=== PATIENT | female | born 1960 | race Caucasian/White ===

== ENCOUNTER 2018-02-08 05:05 | Emergency (ER) | payer MEDICARE, OTHER ==
[~2018-02-08] VITALS: Ht 175.3 cm; Wt 82.0 kg
[~2018-02-08 05:05] MED LIST: ALPR2TAB PO; GUAI120015 PO; NORCO10T PO; ONDA4TAB12 PO; PARO-44 PO; PRED50TA PO; TRAZ-91 PO
[2018-02-08] MEDS ORDERED: ALPRAZOLAM 1 MG TABLET (05:19)
[2018-02-08] MEDS ORDERED: HYDROCODONE/ACETAMINOPHEN 10-3 (05:19)
[2018-02-08] MEDS ORDERED: MELOXICAM 15 MG TABLET (05:19)
[2018-02-08] MEDS ORDERED: HYDROCODONE-ACETAMIN 10-325 MG (05:19)
[2018-02-08] MEDS ORDERED: TRAZODONE 150 MG TABLET (05:19)
[2018-02-08] MEDS ORDERED: LYRICA 200 MG CAPSULE (05:19)
[2018-02-08] MEDS ORDERED: DULOXETINE 60 MG (05:19)
[2018-02-08] MEDS ORDERED: ARIPIPRAZOLE 2 MG (05:19)
[2018-02-08] MEDS ORDERED: HYDROmorphone 1 mg/ml syringe IM ONE (05:40)
[2018-02-08] MEDS ORDERED: morphine 4 MG/ML inj SYRINge IV ONE (05:50)
[2018-02-08] MEDS ORDERED: predniSONE 20 mg tablet PO ONE (06:00)
[2018-02-08] MEDS ORDERED: ketorolac trometh inj. 60 MG/2 ML VIAL IM ONE (06:20)
[2018-02-08] MEDS ORDERED: PRED20TA PO (06:20)
[2018-02-08 06:39] VITALS: BP 118/75
== END 2018-02-08 06:42 | disposition home or self-care (01) ==
LOC: ER 05:06
DX: G89.29 Other chronic pain (principal); M54.41 Lumbago with sciatica, right side; J44.9 Chronic obstructive pulmonary disease, unspecified; Z79.899 Other long term (current) drug therapy
CPT/HCPCS: 96372; 96374; 99284; J1885; J2270; J7512

== ENCOUNTER 2019-01-17 19:35 | Emergency (ER) | payer MEDICARE, OTHER ==
[~2019-01-17] VITALS: Ht 172.7 cm; Wt 77.5 kg
[~2019-01-17 19:35] MED LIST changes: +ALPRAZOLAM 1 MG TABLET; +ARIPIPRAZOLE 2 MG; +DULOXETINE 60 MG; +HYDROCODONE-ACETAMIN 10-325 MG; +HYDROCODONE/ACETAMINOPHEN 10-3; +LYRICA 200 MG CAPSULE; +MELOXICAM 15 MG TABLET; +TRAZODONE 150 MG TABLET
[2019-01-17 19:44] VITALS: BP 125/64
--- NOTE | 2019-01-17 20:00 | NUR ---
PT AMB WITH STEADY GAIT TO ROOM WC2 FROM TRIAGE
--- NOTE | 2019-01-17 20:07 | NUR ---
PT IS 59 YO FEMALE C/O GRD LEVEL FALL AT APPROX 0900 TODAY LANDING IN RT LOWER LATERAL RIBS, TOOK TYLENOL AT 1600 AND NORCO 10MG, 2TABS AT 1900. PT IS RESTING QUIETLY IN ROOM ON CHAIR WAITING TO BE EVALUATED
[2019-01-17] MEDS ORDERED: ketorolac tromethamine 15mg/ml inj. IM ONE (20:30)
== END 2019-01-17 20:41 | disposition home or self-care (01) ==
LOC: ER 19:36
DX: S20.211A Contusion of right front wall of thorax, initial encounter (principal); M54.6 Pain in thoracic spine; J44.9 Chronic obstructive pulmonary disease, unspecified; G89.29 Other chronic pain; Z98.890 Other specified postprocedural states; Z88.8 Allergy status to other drugs, medicaments and biological substances; Z79.899 Other long term (current) drug therapy; W18.39XA Other fall on same level, initial encounter; Y93.89 Activity, other specified; Y92.89 Other specified places as the place of occurrence of the external cause; Y99.8 Other external cause status
CPT/HCPCS: 96372; 99284; J1885

== ENCOUNTER 2019-02-01 06:27 | Inpatient (IN) | payer MEDICARE, OTHER ==
[~2019-02-01] VITALS: Ht 172.7 cm; Wt 100.0 kg
[~2019-02-01 06:27] MED LIST changes: -DULOXETINE 60 MG; +DULOXETINE 60 MG PO; -MELOXICAM 15 MG TABLET; +MELOXICAM 15 MG TABLET PO; -TRAZODONE 150 MG TABLET; +TRAZODONE 150 MG TABLET PO
[2019-02-01] MEDS ORDERED: HYDROmorphone 1 mg/ml syringe IV ONE (07:05)
[2019-02-01] MEDS ORDERED: normal saline 1000ML IV soln IVB ONE (08:05)
[2019-02-01] MEDS ORDERED: HYDROmorphone inj. 0.5 MG/0.5 ML DISP.SYRIN IV ONE (08:15)
[2019-02-01 08:24] LABS: BASOPHILS # (AUTO) 0.1 X10'3 (0-0.2); BASOPHILS % (AUTO) 0.8 % (0-1); EOSINOPHILS # (AUTO) 0.1 X10'3 (0-0.9); EOSINOPHILS % (AUTO) 0.9 % (0-6); HEMATOCRIT 40.6 % (35.0-45.0); HEMOGLOBIN 13.6 g/dl (12.0-16.0); LYMPHOCYTES # (AUTO) 1.2 X10'3 (1.1-4.8); LYMPHOCYTES % (AUTO) 10.8 % (21-51); MEAN CORPUSCULAR HEMOGLOBIN 30.7 PG (27.0-31.0); MEAN CORPUSCULAR HGB CONC 33.4 g/dL (33.0-36.5); MEAN PLATELET VOLUME 7.1 FL (7.4-10.4); MONOCYTES # (AUTO) 0.7 X10'3 (0-0.9); MONOCYTES % (AUTO) 6.4 % (2-12); NEUTROPHILS # (AUTO) 8.8 X10'3 (1.8-7.7); NEUTROPHILS % (AUTO) 81.1 % (42-75); PLATELET COUNT 430 X10'3 (140-440); RED BLOOD COUNT 4.41 X10'6 (4.20-5.60); RED CELL DISTRIBUTION WIDTH 13.9 % (11.5-14.5); WHITE BLOOD COUNT 10.9 X10'3 (4.5-11.0)
[2019-02-01 08:47] LABS: ALANINE AMINOTRANSFERASE 17 U/L (12-78); ALBUMIN/GLOBULIN RATIO 0.9 (1.1-1.5); ALKALINE PHOSPHATASE 118 IU/L (46-116); ANION GAP 8 (8-16); ASPARTATE AMINO TRANSFERASE 14 U/L (10-37); BILIRUBIN,TOTAL 0.2 MG/DL (0.1-1.0); BLOOD UREA NITROGEN 27 MG/DL (7-18); BUN/CREATININE RATIO 31.8 (6.6-38.0); CALCIUM 8.7 MG/DL (8.5-10.1); CHLORIDE 108 MMOL/L (99-107); CREATININE 0.85 MG/DL (0.40-0.90); GLUCOSE 114 MG/DL (70-104); POTASSIUM 3.9 MMOL/L (3.5-5.1); SODIUM 143 MMOL/L (135-145); TOTAL CARBON DIOXIDE 26.9 MMOL/L (24-32); TOTAL PROTEIN 6.5 G/DL (6.4-8.2); eGFR 69 ML/MIN
[2019-02-01 08:51] LABS: PARTIAL THROMBOPLASTIN TIME 28 SECONDS (22-32)
--- NOTE | 2019-02-01 09:20 | NUR ---
Assumed care of pt. Resting in [facility]. Assisted pt onto bed ashley and repositioned for comfort. Cold packs placed to R ankle/heel for comfort; +swelling and bruising; pms intact distally. VSS. Awaiting receiving facility for transfer. Will continue to monitor.
[2019-02-01] MEDS ORDERED: HYDROmorphone inj. 0.5 MG/0.5 ML DISP.SYRIN IV PRN (09:35)
--- NOTE | 2019-02-01 10:55 | NUR ---
principal technical writer at bedside to apply splint as ordered.
[2019-02-01] MEDS ORDERED: potassium Cl 40MEQ/NS 500ml 500 ML IV PRN ×2 (11:05)
[2019-02-01] MEDS ORDERED: magnesium 4gm in 100ml NS 100 ML IV PRN (11:05)
[2019-02-01] MEDS ORDERED: morphine 2 MG/ML inj. syringe IV PRN (11:05)
[2019-02-01] MEDS ORDERED: HYDROcodone/acetaminophen 10/325mg tab PO PRN (11:05)
[2019-02-01] MEDS ORDERED: magnesium 2GM in 50ml NS 50 ML IV PRN (11:05)
[2019-02-01] MEDS ORDERED: HYDROcodone/acetaminophen 5mg/325mg tablet PO PRN (11:05)
[2019-02-01] MEDS ORDERED: magnesium Cl slow-release 64mg tablet PO PRN (11:05)
[2019-02-01] MEDS ORDERED: magnesium hydroxide 30ml (MOM) UD suspension PO PRN (11:05)
[2019-02-01] MEDS ORDERED: acetaminophen 325mg tablet PO PRN ×2 (11:05)
[2019-02-01] MEDS ORDERED: LORazepam 2 mg/ml vial IV PRN (11:05)
[2019-02-01] MEDS ORDERED: mag hydrox/Alum hydrox/simeth 30ml oral suspension PO PRN (11:05)
[2019-02-01] MEDS ORDERED: potassium Cl 20 mEq SR tablet PO PRN ×2 (11:05)
[2019-02-01] MEDS ORDERED: ondansetron/PF 4mg/2ml inj IV PRN (11:05)
[2019-02-01] MEDS: normal saline 1000ml 1,000 ML IV SCH (11:26)
--- NOTE | 2019-02-01 12:00 | NUR ---
Patient in room ORTHO 4010. I have received report from lOy, ED RN, and had the opportunity to ask questions and assume patient care.
[2019-02-01 12:15] VITALS: BP 130/79
[2019-02-01] MEDS: morphine 2 MG/ML inj. syringe IV PRN ×2 (13:26→19:37)
[2019-02-01] MEDS ORDERED: DULO60CA64 PO (13:31)
[2019-02-01] MEDS ORDERED: MELO-102 PO (13:31)
[2019-02-01] MEDS ORDERED: HYDR-3972 PO (13:31)
[2019-02-01] MEDS ORDERED: TRAZ300T2 PO (13:31)
[2019-02-01 13:56] LABS: URINE AMPHETAMINE SCREEN NEGATIVE (Neg); URINE BARBITUATE SCREEN NEGATIVE (Neg); URINE BENZODIAZEPINES SCREEN POSITIVE (Neg); URINE CANNABINOID SCREEN POSITIVE (Neg); URINE COCAINE SCREEN NEGATIVE (Neg); URINE METHADONE SCREEN NEGATIVE (Neg); URINE OPIATE SCREEN POSITIVE (Neg); URINE PHENCYCLIDINE SCREEN NEGATIVE (Neg)
[2019-02-01] MEDS: HYDROcodone/acetaminophen 10/325mg tab PO PRN ×2 (15:18→20:47)
[2019-02-01 18:00] VITALS: BP 141/72
--- NOTE | 2019-02-01 18:15 | NUR ---
Problems reprioritized. Patient report given, questions answered & plan of care reviewed with CHARLES Montoya.
[2019-02-01] MEDS: heparin, porcine 5000 units/ml vial SQ SCH (19:36)
[2019-02-01] MEDS: LORazepam 1 MG tablet PO PRN (19:37)
[2019-02-01] MEDS: traZODone 150mg tablet PO SCH (20:59)
[2019-02-01] MEDS ORDERED: temazepam 15mg capsule PO PRN (21:00)
--- NOTE | 2019-02-01 21:12 | NUR ---
I called admitting and asked them to come and take her wallet with tellez/checks and credit cards to the vault to be locked up. I took her home medications to the pharmacy to lock them up.
[2019-02-01 22:00] VITALS: BP 133/88
[2019-02-02] VITALS (21 sets, daily range): BP systolic 86–146; BP diastolic 49–87
[2019-02-02] MEDS: morphine 2 MG/ML inj. syringe IV PRN (03:16)
[2019-02-02] MEDS: HYDROcodone/acetaminophen 10/325mg tab PO PRN ×4 (06:27→22:13)
[2019-02-02] MEDS: LORazepam 1 MG tablet PO PRN ×2 (06:30→22:13)
--- NOTE | 2019-02-02 06:37 | NUR ---
Problems reprioritized. Patient report given, questions answered & plan of care reviewed with CHARLES Barone.
[2019-02-02] MEDS: heparin, porcine 5000 units/ml vial SQ SCH ×2 (06:51→20:18)
[2019-02-02 06:55] LABS: BASOPHILS # (AUTO) 0.1 X10'3 (0-0.2); BASOPHILS % (AUTO) 0.6 % (0-1); EOSINOPHILS # (AUTO) 0.2 X10'3 (0-0.9); EOSINOPHILS % (AUTO) 1.6 % (0-6); HEMATOCRIT 40.1 % (35.0-45.0); HEMOGLOBIN 13.5 g/dl (12.0-16.0); LYMPHOCYTES # (AUTO) 1.5 X10'3 (1.1-4.8); LYMPHOCYTES % (AUTO) 15.2 % (21-51); MEAN CORPUSCULAR HEMOGLOBIN 30.8 PG (27.0-31.0); MEAN CORPUSCULAR HGB CONC 33.6 g/dL (33.0-36.5); MEAN CORPUSCULAR VOLUME 91.6 FL (78-98); MEAN PLATELET VOLUME 7.2 FL (7.4-10.4); MONOCYTES # (AUTO) 0.8 X10'3 (0-0.9); MONOCYTES % (AUTO) 8.4 % (2-12); NEUTROPHILS # (AUTO) 7.3 X10'3 (1.8-7.7); NEUTROPHILS % (AUTO) 74.2 % (42-75); PLATELET COUNT 465 X10'3 (140-440); RED BLOOD COUNT 4.38 X10'6 (4.20-5.60); RED CELL DISTRIBUTION WIDTH 13.5 % (11.5-14.5); WHITE BLOOD COUNT 9.9 X10'3 (4.5-11.0)
[2019-02-02 07:15] LABS: ALANINE AMINOTRANSFERASE 16 U/L (12-78); ALBUMIN 2.9 G/DL (3.4-5.0); ALBUMIN/GLOBULIN RATIO 0.8 (1.1-1.5); ALKALINE PHOSPHATASE 114 IU/L (46-116); ANION GAP 8 (8-16); ASPARTATE AMINO TRANSFERASE 15 U/L (10-37); BILIRUBIN,TOTAL 0.4 MG/DL (0.1-1.0); BLOOD UREA NITROGEN 14 MG/DL (7-18); BUN/CREATININE RATIO 22.2 (6.6-38.0); CALCIUM 8.8 MG/DL (8.5-10.1); CHLORIDE 106 MMOL/L (99-107); CREATININE 0.63 MG/DL (0.40-0.90); GLUCOSE 115 MG/DL (70-104); MAGNESIUM 1.9 MG/DL (1.5-2.4); POTASSIUM 3.8 MMOL/L (3.5-5.1); SODIUM 140 MMOL/L (135-145); TOTAL CARBON DIOXIDE 26.5 MMOL/L (24-32); TOTAL PROTEIN 6.4 G/DL (6.4-8.2); eGFR > 90 ML/MIN
[2019-02-02] MEDS: duloxetine 20mg capsule.DR PO SCH (07:17)
[2019-02-02] MEDS: K and/or MAG REPLACEMENT MC SCH (08:00)
[2019-02-02] MEDS ORDERED: sevoflurane 250ml liquid IH ONE (12:24)
[2019-02-02] MEDS ORDERED: MIDAZolam 5mg/5ml vial ONE (12:28)
[2019-02-02] MEDS ORDERED: fentaNYL/PF 50MCG/1 ML 2ML syringe ONE ×2 (12:28→13:29)
[2019-02-02] MEDS ORDERED: propofol inj 20 ML IV ONE (13:02)
[2019-02-02] MEDS ORDERED: glycopyrrolate 0.2mg/ml inj ONE (13:02)
[2019-02-02] MEDS ORDERED: ondansetron/PF 4mg/2ml inj ONE (13:02)
[2019-02-02] MEDS ORDERED: ROPIVAcaine 0.5% (5mg/ml) 30ml vial ONE (13:02)
[2019-02-02] MEDS ORDERED: neostigmine methylsulfate 1 MG/ML 10ml vial ONE (13:02)
[2019-02-02] MEDS ORDERED: rocuronium 10mg/ml inj IV ONE (13:02)
[2019-02-02] MEDS ORDERED: dexamethasone sod phosphate 4mg/ml inj. ONE (13:02)
[2019-02-02] MEDS ORDERED: LIDOcaine 1%/PF 5ML 10 MG/ML VIAL ONE (13:02)
[2019-02-02] MEDS ORDERED: LIDOcaine 2% (20mg/ml) 5ml vial ONE (13:10)
--- NOTE | 2019-02-02 13:45 | NUR ---
Received from OR via BED, accompanied by Anesthesiologist THERESA and report given by Anesthesiolgist. PT DROWSY, OXYGENATING WELL ON 10 LPM O2 VIA MASK, NO RESP DISTRESS NOTED. ANETHESIA REQUESTED FOR PT TO HAVE A DUONEB TX, RESP WAS PAGED. PT DENIES NAUSEA OR PAIN AT THIS TIME, HAS RISB. NUMBNESS TO R ARM/HAND. R FINGERS ARE PWD. RUE PADDED ON A PILLOW. NO INGRAM, SCD IN ON LLE. VSS.
[2019-02-02] MEDS ORDERED: ringers solution, lacted 1,000 ML IV SCH (13:58)
[2019-02-02] MEDS ORDERED: meperidine/PF 25mg/ml syringe IV PRN ×3 (14:00)
[2019-02-02] MEDS ORDERED: morphine 4 MG/ML inj SYRINge IV PRN ×2 (14:00)
[2019-02-02] MEDS ORDERED: proCHLORperazine 10 MG/2 ml inj IV PRN (14:00)
[2019-02-02] MEDS ORDERED: ondansetron/PF 4mg/2ml inj IV PRN (14:00)
--- NOTE | 2019-02-02 15:20 | NUR ---
PT HAD URINE INCONTINENCE X 2 DURING PACU STAY. PROVIDED MOISES CARE AND CLEAN LINENS. NO C/O PAIN, TOLERATING PO FLUIDS WELL. VSS. BELONGINGS ARE IN PT ROOM. TRANSFERRED BACK TO ORTHO FLOOR IN STABLE CONDITION. REPORT GIVEN TO RECEIVING RN.
[2019-02-02] MEDS ORDERED: acetaminophen 1,000mg/100ml IV 100 ML IV ONE (15:25)
[2019-02-02] MEDS ORDERED: LORazepam 2 mg/ml vial IV ONE (15:25)
[2019-02-02] MEDS: ipratropium/albuterol 3ml nebule NEB SCH ×3 (16:30→23:00)
[2019-02-02] MEDS ORDERED: nicotine 21mg patch - 24 hr TD SCH (16:32)
[2019-02-02] MEDS: nicotine 21mg patch - 24 hr TD SCH (16:42)
[2019-02-02] MEDS: normal saline 1000ml 1,000 ML IV SCH (16:43)
--- NOTE | 2019-02-02 18:19 | NUR ---
Problems reprioritized. Patient report given, questions answered & plan of care reviewed with Kaylin SOTO.
--- NOTE | 2019-02-02 19:04 | NUR ---
REPORT REC'D FROM CHARLES FIORE.
[2019-02-02] MEDS: traZODone 150mg tablet PO SCH (20:15)
[2019-02-02] MEDS: cefazolin/dext.iso 2gm/100ml 100 ML IV SCH (20:16)
--- NOTE | 2019-02-02 23:26 | NUR ---
PT BP IS LOW, PT IS NONSYMPTOMATIC, AWAKE ALERT ORIENTED, JUST GIVEN NORCO, "ARM IS WAKING UP AND THROBBING". WILL CONTINUE TO MONITOR. Addendum: 02/02/19 at 3328 by Kaylin Orellana RN Amended: Links added.
[2019-02-03] MEDS: cefazolin/dext.iso 2gm/100ml 100 ML IV SCH ×3 (00:08→15:38)
[2019-02-03] MEDS: ipratropium/albuterol 3ml nebule NEB SCH ×5 (03:00→23:00)
[2019-02-03] MEDS: HYDROcodone/acetaminophen 10/325mg tab PO PRN ×5 (04:56→22:15)
[2019-02-03 06:00] VITALS: BP 119/71
--- NOTE | 2019-02-03 06:25 | NUR ---
PHYS. THER. IS IN THE ROOM TO AMBULATE, FOUND MULTIPLE UNKNOWN MEDICATIONS LOOSE IN THE BED. NSG WILL FOLLOW UP WITH IDENTIFICATION.
--- NOTE | 2019-02-03 06:25 | NUR ---
Patient in room ORTHO 4010. I have received report from Hira SOTO and had the opportunity to ask questions and assume patient care.
--- NOTE | 2019-02-03 06:31 | NUR ---
REPORT GIVEN TO CHARLES FIORE.
--- NOTE | 2019-02-03 06:40 | NUR ---
Medication found in bed from PT while getting patient up. Looked up and they were Serequel 50mg, Cymbalta 60mg, Gabapentin 300mg. Turner Kirk aware.
[2019-02-03] MEDS: duloxetine 20mg capsule.DR PO SCH (07:27)
[2019-02-03] MEDS: heparin, porcine 5000 units/ml vial SQ SCH ×2 (07:28→20:58)
[2019-02-03] MEDS: normal saline 1000ml 1,000 ML IV SCH ×2 (07:32→22:42)
[2019-02-03 07:40] LABS: BASOPHILS # (AUTO) 0.1 X10'3 (0-0.2); BASOPHILS % (AUTO) 0.5 % (0-1); EOSINOPHILS % (AUTO) 0.2 % (0-6); HEMATOCRIT 38.3 % (35.0-45.0); HEMOGLOBIN 12.7 g/dl (12.0-16.0); LYMPHOCYTES # (AUTO) 1.5 X10'3 (1.1-4.8); LYMPHOCYTES % (AUTO) 14.6 % (21-51); MEAN CORPUSCULAR HEMOGLOBIN 30.1 PG (27.0-31.0); MEAN CORPUSCULAR VOLUME 91.2 FL (78-98); MEAN PLATELET VOLUME 7.6 FL (7.4-10.4); MONOCYTES # (AUTO) 0.9 X10'3 (0-0.9); MONOCYTES % (AUTO) 8.4 % (2-12); NEUTROPHILS # (AUTO) 7.9 X10'3 (1.8-7.7); NEUTROPHILS % (AUTO) 76.3 % (42-75); PLATELET COUNT 443 X10'3 (140-440); RED CELL DISTRIBUTION WIDTH 13.8 % (11.5-14.5); WHITE BLOOD COUNT 10.4 X10'3 (4.5-11.0)
[2019-02-03 07:55] LABS: ALANINE AMINOTRANSFERASE 15 U/L (12-78); ALBUMIN 2.7 G/DL (3.4-5.0); ALBUMIN/GLOBULIN RATIO 0.8 (1.1-1.5); ALKALINE PHOSPHATASE 102 IU/L (46-116); ANION GAP 9 (8-16); ASPARTATE AMINO TRANSFERASE 15 U/L (10-37); BILIRUBIN,TOTAL 0.3 MG/DL (0.1-1.0); BLOOD UREA NITROGEN 13 MG/DL (7-18); CHLORIDE 105 MMOL/L (99-107); CREATININE 0.62 MG/DL (0.40-0.90); GLUCOSE 117 MG/DL (70-104); POTASSIUM 3.6 MMOL/L (3.5-5.1); SODIUM 140 MMOL/L (135-145); TOTAL CARBON DIOXIDE 25.6 MMOL/L (24-32); TOTAL PROTEIN 6.3 G/DL (6.4-8.2); eGFR > 90 ML/MIN
[2019-02-03] MEDS: K and/or MAG REPLACEMENT MC SCH (08:00)
[2019-02-03 10:00] VITALS: BP 114/62
[2019-02-03 14:00] VITALS: BP 111/78
[2019-02-03] MEDS ORDERED: LORazepam 0.5 MG tablet PO PRN (15:30)
[2019-02-03] MEDS: nicotine 21mg patch - 24 hr TD SCH (17:26)
[2019-02-03 18:00] VITALS: BP 127/70
[2019-02-03] MEDS: naproxen 500mg tablet PO SCH (18:04)
--- NOTE | 2019-02-03 18:10 | NUR ---
Problems reprioritized. Patient report given, questions answered & plan of care reviewed with Kaylin davila.
--- NOTE | 2019-02-03 18:18 | NUR ---
REPORT REC'D FROM CHARLES FIORE.
[2019-02-03] MEDS: traZODone 150mg tablet PO SCH (20:59)
[2019-02-03 22:00] VITALS: BP 162/75
[2019-02-04] MEDS: cefazolin/dext.iso 2gm/100ml 100 ML IV SCH ×2 (01:02→08:07)
[2019-02-04] MEDS: ipratropium/albuterol 3ml nebule NEB SCH ×3 (03:00→11:00)
[2019-02-04] MEDS: HYDROcodone/acetaminophen 10/325mg tab PO PRN ×3 (05:32→14:41)
[2019-02-04 06:00] VITALS: BP 137/77
--- NOTE | 2019-02-04 06:20 | NUR ---
report given to giovanni Barone.
[2019-02-04 07:20] LABS: BASOPHILS # (AUTO) 0.1 X10'3 (0-0.2); BASOPHILS % (AUTO) 0.9 % (0-1); EOSINOPHILS # (AUTO) 0.1 X10'3 (0-0.9); EOSINOPHILS % (AUTO) 1.6 % (0-6); HEMATOCRIT 35.9 % (35.0-45.0); HEMOGLOBIN 12.1 g/dl (12.0-16.0); LYMPHOCYTES # (AUTO) 1.5 X10'3 (1.1-4.8); LYMPHOCYTES % (AUTO) 20.2 % (21-51); MEAN CORPUSCULAR HEMOGLOBIN 30.4 PG (27.0-31.0); MEAN CORPUSCULAR HGB CONC 33.8 g/dL (33.0-36.5); MEAN CORPUSCULAR VOLUME 90.2 FL (78-98); MEAN PLATELET VOLUME 7.6 FL (7.4-10.4); MONOCYTES # (AUTO) 0.7 X10'3 (0-0.9); MONOCYTES % (AUTO) 9.4 % (2-12); NEUTROPHILS % (AUTO) 67.9 % (42-75); PLATELET COUNT 419 X10'3 (140-440); RED BLOOD COUNT 3.98 X10'6 (4.20-5.60); RED CELL DISTRIBUTION WIDTH 13.5 % (11.5-14.5); WHITE BLOOD COUNT 7.3 X10'3 (4.5-11.0)
[2019-02-04 07:49] LABS: ALANINE AMINOTRANSFERASE 12 U/L (12-78); ALBUMIN 2.6 G/DL (3.4-5.0); ALBUMIN/GLOBULIN RATIO 0.8 (1.1-1.5); ALKALINE PHOSPHATASE 94 IU/L (46-116); ANION GAP 9 (8-16); ASPARTATE AMINO TRANSFERASE 18 U/L (10-37); BILIRUBIN,TOTAL 0.4 MG/DL (0.1-1.0); BLOOD UREA NITROGEN 12 MG/DL (7-18); BUN/CREATININE RATIO 19.4 (6.6-38.0); CALCIUM 8.7 MG/DL (8.5-10.1); CHLORIDE 108 MMOL/L (99-107); CREATININE 0.62 MG/DL (0.40-0.90); GLUCOSE 111 MG/DL (70-104); MAGNESIUM 1.8 MG/DL (1.5-2.4); POTASSIUM 3.4 MMOL/L (3.5-5.1); SODIUM 144 MMOL/L (135-145); TOTAL CARBON DIOXIDE 27.4 MMOL/L (24-32); eGFR > 90 ML/MIN
[2019-02-04] MEDS ORDERED: non-formulary drug (Alprazolam 1 MG) PO SCH (08:00)
[2019-02-04] MEDS ORDERED: ALPRAZolam 0.5mg tablet PO SCH (08:00)
[2019-02-04] MEDS ORDERED: MELOXICAM PO SCH (08:00)
[2019-02-04] MEDS: K and/or MAG REPLACEMENT MC SCH (08:00)
[2019-02-04] MEDS: naproxen 500mg tablet PO SCH (08:08)
[2019-02-04] MEDS: duloxetine 20mg capsule.DR PO SCH (08:08)
[2019-02-04] MEDS: heparin, porcine 5000 units/ml vial SQ SCH (08:12)
[2019-02-04 10:00] VITALS: BP 133/84
--- NOTE | 2019-02-04 11:48 | NUR ---
Student Medication Administration:For this medication-pass time frame [id number], all medication were reviewed, administered and documented per hospital policy by Duke Garcia. Student documentation:I have reviewed and agree with all interventions, assessments performed and documented by Duke Garcia.
--- NOTE | 2019-02-04 12:24 | NUR ---
PATIENT REFUSING BREATHING TREATMENTS, PLEASE DISCONTINUE ORDER OR CHANGE TO PRN
[2019-02-04] MEDS: normal saline 1000ml 1,000 ML IV SCH (13:00)
--- NOTE | 2019-02-04 13:21 | NUR ---
Report called to Vika bonilla Coila.
--- NOTE | 2019-02-04 13:38 | NUR ---
IV removed, no tele box on patient.
== END 2019-02-04 14:50 | DRG 511 ==
LOC: ER 06:27 → ED HOLD 12:24 → ORTHO 4S 12:37
PROVIDERS: ADMIT Internal Medicine; ATTEND Family Medicine
PROC: 2W3QX1Z Immobilization of Right Lower Leg using Splint (ICD-10-PCS; 2019-02-01)
PROC: 2W3CX1Z Immobilization of Right Lower Arm using Splint (ICD-10-PCS; 2019-02-01)
PROC: 3E0T3BZ Introduction of Anesthetic Agent into Peripheral Nerves and Plexi, Percutaneous Approach (ICD-10-PCS; 2019-02-02)
PROC: 0PSH04Z Reposition Right Radius with Internal Fixation Device, Open Approach (ICD-10-PCS; principal; 2019-02-02 12:24)
DX: S92.014A Nondisplaced fracture of body of right calcaneus, initial encounter for closed fracture (principal); S52.551A Other extraarticular fracture of lower end of right radius, initial encounter for closed fracture; S52.601A Unspecified fracture of lower end of right ulna, initial encounter for closed fracture; F17.210 Nicotine dependence, cigarettes, uncomplicated; G89.4 Chronic pain syndrome; J44.9 Chronic obstructive pulmonary disease, unspecified; M81.0 Age-related osteoporosis without current pathological fracture; M54.9 Dorsalgia, unspecified; F41.9 Anxiety disorder, unspecified; W13.4XXA Fall from, out of or through window, initial encounter; Z88.8 Allergy status to other drugs, medicaments and biological substances; Z79.82 Long term (current) use of aspirin; Y92.89 Other specified places as the place of occurrence of the external cause; Y93.39 Activity, other involving climbing, rappelling and jumping off; Y99.8 Other external cause status
CPT/HCPCS: 29515; 36415; 71045; 73110; 73610; 73700; 80053; 80305; 83735; 85025; 85610; 85730; 87070; 93005; 94640; 94760; 96374; 96376; 97116; 97162; 97530; 99285; A6222; A6446; A6449; A7000; C1713; G0378; J0690; J1100; J1170; J1644; J2001; J2250; J2270; J2405; J2704; J2710; J2795; J3010; J3490; J7030; J7120

== ENCOUNTER 2019-02-19 10:20 | Emergency (ER) | payer MEDICARE, OTHER ==
[~2019-02-19] VITALS: Ht 172.7 cm; Wt 97.7 kg
[~2019-02-19 10:20] MED LIST changes: -ALPRAZOLAM 1 MG TABLET; -ARIPIPRAZOLE 2 MG; +DULO60CA64 PO; -DULOXETINE 60 MG PO; -GUAI120015 PO; +HYDR-3972 PO; -HYDROCODONE-ACETAMIN 10-325 MG; -HYDROCODONE/ACETAMINOPHEN 10-3; -LYRICA 200 MG CAPSULE; +MELO-102 PO; -MELOXICAM 15 MG TABLET PO; -NORCO10T PO; -ONDA4TAB12 PO; -PARO-44 PO; -PRED50TA PO; -TRAZ-91 PO; +TRAZ300T2 PO; -TRAZODONE 150 MG TABLET PO
[2019-02-19] MEDS ORDERED: ketorolac tromethamine 15mg/ml inj. IM ONE (11:10)
--- NOTE | 2019-02-19 12:50 | NUR ---
PT AT XRAY
--- NOTE | 2019-02-19 12:56 | NUR ---
PT BACK FROM XRAY
[2019-02-19] MEDS ORDERED: ONDA4TAB6 PO (13:34)
[2019-02-19] MEDS ORDERED: HYDR-3965 PO (13:34)
[2019-02-19] MEDS ORDERED: METH500T PO (13:34)
[2019-02-19 13:41] VITALS: BP 122/59
--- NOTE | 2019-02-19 13:45 | NUR ---
PATIENT UNABLE TO AMBULATE DUE TO CASTING ON THE LEG, PATIENT HAS BEEN WHEELCHAIR BOUND. DR MACK AWARE OF GAIT TESTING OMITTED FROM PLAN OF CARE .
== END 2019-02-19 14:09 | disposition home or self-care (01) ==
LOC: ER 10:21
DX: S29.012A Strain of muscle and tendon of back wall of thorax, initial encounter (principal); S39.012A Strain of muscle, fascia and tendon of lower back, initial encounter; J44.9 Chronic obstructive pulmonary disease, unspecified; G89.29 Other chronic pain; Z98.890 Other specified postprocedural states; Z88.8 Allergy status to other drugs, medicaments and biological substances; Z79.899 Other long term (current) drug therapy; W18.49XA Other slipping, tripping and stumbling without falling, initial encounter; Y93.89 Activity, other specified; Y92.099 Unspecified place in other non-institutional residence as the place of occurrence of the external cause; Y99.9 Unspecified external cause status
CPT/HCPCS: 72074; 72100; 96372; 99284; J1885

== ENCOUNTER 2019-05-24 11:02 | Inpatient (IN) | payer MEDICARE, OTHER ==
[~2019-05-24] VITALS: Ht 172.7 cm; Wt 81.9 kg
--- NOTE | 2019-05-24 10:40 | NUR ---
ADMISSION NOTE: Patient was transferred from [facility] to [facility]. Patient ambulates without difficulty. States she started getting depressed approximately two months ago. In March she cut her wrists and has bilateral scars on thighs were there were large cuts made in tissue. Patient 3 [place]. Patient admits to being depressed, but presently is not suicidal. States that she has seen Dr. Christie at [facility], but has been off her medications for at least a month. She was an inpatient recently and never refilled her medications when she got back. Patient has chronic back pain and usually takes [place] for this. Pain is 7/10, Tylenol was administered. Patient has a sister that lives out of town, and an ex-boyfriend who is taking care of her cats while she is here. She states that she has lost some weight lately, and does not have the drive to cook or prepare herself food. States that she gets some tremors in her hands in the a.m., and wrings them much of the time.
[~2019-05-24 11:02] MED LIST changes: -DULO60CA64 PO; +DULO60CA65 PO; +METH500T PO; +ONDA4TAB6 PO
[2019-05-24] MEDS ORDERED: loperamide 2mg capsule PO PRN (11:30)
[2019-05-24] MEDS ORDERED: mag hydrox/Alum hydrox/simeth 30ml oral suspension PO PRN (11:30)
--- NOTE | 2019-05-24 12:08 | NUR ---
Malnutrition consult: Pt just admitted pending documentation of ht, wt, H&P, physical assessment, and PO intake on regular diet. Insufficient information to assess for malnutrition at this time. Will f/u tomorrow. Addendum: 05/24/19 at [address] Amended: Links added.
[2019-05-24 12:19] VITALS: BP 124/86
[2019-05-24] MEDS ORDERED: pneumococcal 23-VAL P-sac vacc 25 mcg/0.5ml vial IMVAC ONE (12:25)
[2019-05-24] MEDS: acetaminophen 325mg tablet PO PRN ×2 (13:44→20:54)
[2019-05-24] MEDS ORDERED: QUET25TA PO (15:02)
[2019-05-24] MEDS ORDERED: HYDR-3965 PO (15:09)
[2019-05-24] MEDS ORDERED: OMEP20TA23 PO (15:09)
[2019-05-24] MEDS ORDERED: GABA-532 PO (15:09)
[2019-05-24] MEDS ORDERED: METH-360 PO (15:09)
[2019-05-24] MEDS ORDERED: DULO-31 PO (15:09)
[2019-05-24 20:00] VITALS: BP 104/64
[2019-05-24] MEDS: hydrOXYzine 25 MG tablet PO PRN (20:53)
[2019-05-24] MEDS ORDERED: traMADol 50MG tablet PO PRN (21:00)
[2019-05-24] MEDS: gabapentin 400mg capsule PO SCH (21:54)
[2019-05-24] MEDS: QUEtiapine 25mg tablet PO SCH (21:55)
[2019-05-24] MEDS: nortriptyline 25mg capsule PO SCH (21:56)
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
[2019-05-25 07:00] VITALS: BP 101/72
[2019-05-25] MEDS: gabapentin 400mg capsule PO SCH (07:43)
[2019-05-25] MEDS: duloxetine 30mg CAPSULE.DR PO SCH (07:43)
[2019-05-25] MEDS ORDERED: METHOCARBAMOL PO PRN (08:00)
[2019-05-25] MEDS ORDERED: duloxetine 30mg CAPSULE.DR PO SCH (08:00)
[2019-05-25] MEDS ORDERED: HYDROcodone/acetaminophen 5mg/325mg tablet PO PRN (08:00)
[2019-05-25] MEDS: pantoprazole 40mg Tablet.DR PO SCH (08:13)
[2019-05-25] MEDS: gabapentin 300mg capsule PO SCH ×3 (08:13→20:29)
[2019-05-25] MEDS: cyclobenzaprine 10mg tablet PO PRN (08:22)
[2019-05-25] MEDS: acetaminophen 325mg tablet PO PRN ×2 (08:23→16:54)
[2019-05-25 08:36] LABS: CHOL/HDL RATIO 5.3 (0.00-4.99); CHOLESTEROL 187 MG/DL (0-200); HDL CHOLESTEROL 35 MG/DL (35-60); LDL CHOLESTEROL 131 MG/DL (50-100); TRIGLYCERIDES 131 MG/DL (20-135)
[2019-05-25 08:50] LABS: HEMOGLOBIN A1C 5.6 % (4.5-6.2)
--- NOTE | 2019-05-25 10:04 | NUR ---
F/u: Pt PO 100% meals meeting needs, no edema/wounds, and normal strength. Does not qualify for malnutrition at this time. Addendum: 05/25/19 at [address] Amended: Links added.
[2019-05-25] MEDS: hydrOXYzine 25 MG tablet PO PRN (16:52)
--- NOTE | 2019-05-25 18:05 | NUR ---
Nursing Progress Note Legal hold: 5150 Client on involuntary status for DTS Report received from Zari Gibbons RN Why are they here: Pt transferred from [facility] to [facility]. Hx of depression, which has been increasing significantly in the past two months In March pt started cutting her wrists and thighs. Three days ago, pt attempted suicide by [place] the [place]. Pt states trigger for recent events is overwhelming debt. Assessment What has happened this shift: Patient up for breakfast and medication administration. Patient states that she is confused. She asked what happens when she is discharged from here, she was told that she will probably go back to her trailer. Patient states that she has a whole pile of bills, and no way to pay them. She was stating that she doesn't even have a pradhan to her house and started decompensating over this. Asked her if her ex-boyfriend has pradhan as he is feeding her cats, she stated that he did. Boyfriend brought in legal paperwork, POA. When he came in to visit today, patient told him that she would be discharged today or tomorrow, but Dr. Moran does not have immediate discharge plans for her. Patient states that she cannot perform ADL's at home independently, may need some IHSS assistance at home. Patient is making hand wringing movements, but refused anxiolytics. Patient has chronic back pain and was given Tylenol and Flexeril with good relief of symptoms. Patient has past opioid addiction. S/I, H/I: Denies A/VH: Denies Sleep: See Sleep Assessment. Naps in a.m. And p.m. ADL's: Independent Group attendance: Yes. Were meds taken: Yes Any med S/E: None reported, none observed Mental Status Exam Appearance: hair down and loose, wearing nonskid socks and unit green scrubs. Pt has piercing in left cheek. Eye contact: Direct Behavior: Patient up for all meals, groups. cooperative. Speech: Soft, normal rate and rhythm Mood: Depressed. Affect: Flat Thought process: Linear, slightly confused. Thought Content: Worried about living situation, finances. Cognition: A&O X4 Insight: Poor Judgment: Poor Interventions PRN's used: Flexeril 5 mg, Tylenol 650mg Therapeutic interventions: Maintained a safe and supportive environment, provided clear and simple instructions, monitored behaviors and need for intervention, provided positive encouragement and ensured safety, provided a quiet environment for sleep, and maintained Q 15 min safety checks. Restraints/seclusion/emergency medication: N/A Justification of Continued Inpatient Treatment: Pt. requires interruption of current crisis, medication adjustments, and a safe and supportive environment.
[2019-05-25 19:57] VITALS: BP 102/68
[2019-05-25] MEDS: QUEtiapine 25mg tablet PO SCH (20:29)
[2019-05-25] MEDS: nortriptyline 25mg capsule PO SCH (20:29)
[2019-05-25] MEDS ORDERED: QUEtiapine 25mg tablet PO SCH (21:00)
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
[2019-05-26 07:38] VITALS: BP 111/72
[2019-05-26] MEDS: pantoprazole 40mg Tablet.DR PO SCH (08:53)
[2019-05-26] MEDS: duloxetine 30mg CAPSULE.DR PO SCH (08:53)
[2019-05-26] MEDS: gabapentin 300mg capsule PO SCH (08:53)
[2019-05-26] MEDS ORDERED: buprenorphine/naloxone 2-0.5mg sublingual tablet SL ONE (11:40)
[2019-05-26] MEDS: gabapentin 400mg capsule PO SCH ×2 (13:37→20:56)
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
[2019-05-26] MEDS: LORazepam 1 MG tablet PO PRN (17:30)
[2019-05-26] MEDS: buprenorphine/naloxone 2-0.5mg sublingual tablet SL SCH (19:39)
[2019-05-26] MEDS: hydrOXYzine 25 MG tablet PO PRN (19:40)
[2019-05-26 20:10] VITALS: BP 121/68
[2019-05-26] MEDS ORDERED: ibuprofen 200mg tablet PO SCH (20:30)
[2019-05-26] MEDS: QUEtiapine 25mg tablet PO SCH (20:54)
[2019-05-26] MEDS: acetaminophen 325mg tablet PO PRN (20:55)
[2019-05-26] MEDS ORDERED: nortriptyline 25mg capsule PO SCH (21:00)
[2019-05-26] MEDS ORDERED: NICOTINE POLACRILEX 4 MG LOZENGE BC PRN (21:10)
[2019-05-26] MEDS ORDERED: NICOTINE POLACRILEX 2 MG LOZENGE BC PRN (21:17)
--- NOTE | 2019-05-27 03:38 | NUR ---
Nursing Progress Note: Legal hold: 5150 Client on involuntary status for DTS Report received from nurse with use of SBAR: CHARLES Walter Why are they here: Pt transferred from [facility] to [facility]. Hx of depression, which has been increasing significantly in the past two monhts In March pt started cutting her wrists and thighs. Three days ago, pt attempted [place] by [place]. Pt states trigger for recent events is overwhelming debt. Assessment What has happened this shift: Pt in bed at change of shift. During 1:1, pt was visibly shaking when asked how she was feeling, she states "I just don't know. I'm sad (10) and anxious (8/10)." Atarax given to good effect. Pt was hypoverbal and withdrawn initially. She would answer questions in greater depth with some prodding. Pt continues to feel hopeless regarding her debt and states she doesn't have the energy to attend groups. Rn addressed the not eating and offered some snacks she might like to try: sherbet and a burrito. Pt went to group room to eat these items, and stated she liked both. Pt stated her back pain is the same as always; this RN obtained an order from MORRIS Conley at 2009 for ibuprofen as pt stated this NSAID with tylenol was helpful for the pain. During med pass, after pt has returned to her room post snack, pt brightened a few times when discussing this RN. Pt inquired as to how long this RN has worked at [facility] and whether this RN enjoyed it. At this time, this RN also discussed the pt's sister, as the pt stated she had tried to call a few times during the day but the pt ignored the calls. RN encouraged pt to talk with her sister because she had verbalized she is a support person for her; the pt felt like she was being a burden but the RN reassured her the sister is calling because she loves her and wants to see her get better. Pt sighed and stated "I guess so." Pt turned in to sleep shortly after med pass. S/I, H/I: Denies A/VH: Denies Sleep: See Sleep Assessment ADL's: Independent Group attendance: N/A Were meds taken: Yes Any med S/E: None reported, none observed Mental Status Exam Appearance: hair down and loose, wearing nonskid socks and unit green scrubs. Pt has piercing in left cheek. Eye contact: Direct Behavior: Attended snack then resting in room Speech: Soft, normal rate and rhythm Mood: Sad and anxious Affect: Flat with a couple moments of brightening Thought process: Linear Thought Content: overwhelmed by debt, being a burden to her sister Cognition: A&O X4 Insight: Poor Judgment: Poor Interventions PRN's used: Atarax 50mg, Tylenol 650mg, Ibuprofen 600mg Therapeutic interventions: Maintained a safe and supportive environment, provided clear and simple instructions, monitored behaviors and need for intervention, provided positive encouragement and ensured safety, provided a quiet environment for sleep, and maintained Q 15 min safety checks. Restraints/seclusion/emergency medication: N/A Justification of Continued Inpatient Treatment: Pt. requires interruption of current crisis, medication adjustments, and a safe and supportive environment.
[2019-05-27 08:18] VITALS: BP 100/57
[2019-05-27] MEDS: nicotine 14mg patch - 24hr TD SCH (08:56)
[2019-05-27] MEDS: pantoprazole 40mg Tablet.DR PO SCH (08:56)
[2019-05-27] MEDS: gabapentin 400mg capsule PO SCH ×3 (08:56→20:42)
[2019-05-27] MEDS: buprenorphine/naloxone 2-0.5mg sublingual tablet SL SCH ×2 (08:56→20:12)
[2019-05-27] MEDS ORDERED: voritoxetine HBr tablet 5 MG TABLET PO ONE (09:40)
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
[2019-05-27 19:33] VITALS: BP 95/59
[2019-05-27] MEDS: ibuprofen 200mg tablet PO PRN (20:13)
[2019-05-27] MEDS: acetaminophen 325mg tablet PO PRN (20:13)
[2019-05-27] MEDS: QUEtiapine 25mg tablet PO SCH (20:42)
[2019-05-27] MEDS: magnesium hydroxide 30ml (MOM) UD suspension PO PRN (20:42)
[2019-05-27] MEDS ORDERED: nortriptyline 25mg capsule PO SCH (21:00)
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
[2019-05-28 07:14] VITALS: BP 86/64
[2019-05-28] MEDS: pantoprazole 40mg Tablet.DR PO SCH (07:49)
[2019-05-28] MEDS: gabapentin 400mg capsule PO SCH ×3 (07:49→20:59)
[2019-05-28] MEDS: voritoxetine HBr tablet 5 MG TABLET PO SCH (07:50)
[2019-05-28] MEDS: nicotine 14mg patch - 24hr TD SCH (07:51)
[2019-05-28] MEDS: buprenorphine/naloxone 2-0.5mg sublingual tablet SL SCH ×2 (07:51→21:00)
[2019-05-28] MEDS ORDERED: voritoxetine HBr tablet 10 MG TABLET PO SCH (08:00)
[2019-05-28 08:24] LABS: ALBUMIN 3.1 G/DL (3.4-5.0); ANION GAP 4 (8-16); BLOOD UREA NITROGEN 17 MG/DL (7-18); BUN/CREATININE RATIO 22.4 (6.6-38.0); CALCIUM 8.7 MG/DL (8.5-10.1); CHLORIDE 103 MMOL/L (99-107); CREATININE 0.76 MG/DL (0.40-0.90); GLUCOSE 101 MG/DL (70-104); POTASSIUM 3.8 MMOL/L (3.5-5.1); SODIUM 140 MMOL/L (135-145); TOTAL CARBON DIOXIDE 33.1 MMOL/L (24-32); eGFR 78 ML/MIN
[2019-05-28] MEDS: clonazePAM 0.5mg tablet PO PRN (08:54)
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
[2019-05-28 19:45] VITALS: BP 81/57
[2019-05-28] MEDS: QUEtiapine 25mg tablet PO SCH (21:00)
[2019-05-28] MEDS: magnesium hydroxide 30ml (MOM) UD suspension PO PRN (21:12)
[2019-05-28] MEDS ORDERED: docusate sod 100mg capsule PO PRN (21:20)
[2019-05-28] MEDS: acetaminophen 325mg tablet PO PRN (21:23)
[2019-05-28] MEDS: ibuprofen 200mg tablet PO PRN (21:23)
[2019-05-28 22:26] VITALS: BP 90/60
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
[2019-05-29] MEDS: voritoxetine HBr tablet 5 MG TABLET PO SCH (07:37)
[2019-05-29] MEDS: buprenorphine/naloxone 2-0.5mg sublingual tablet SL SCH ×2 (07:37→20:59)
[2019-05-29] MEDS: nicotine 14mg patch - 24hr TD SCH (07:37)
[2019-05-29] MEDS: pantoprazole 40mg Tablet.DR PO SCH (07:37)
[2019-05-29] MEDS: gabapentin 400mg capsule PO SCH ×3 (07:37→20:58)
[2019-05-29] MEDS ORDERED: buprenorphine/naloxone 2-0.5mg sublingual tablet SL ONE (07:45)
[2019-05-29] MEDS: docusate sod 100mg capsule PO SCH ×2 (07:59→20:59)
[2019-05-29 08:05] VITALS: BP 92/58
[2019-05-29] MEDS: clonazePAM 0.5mg tablet PO PRN (09:05)
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
[2019-05-29 19:00] VITALS: BP 98/58
[2019-05-29] MEDS ORDERED: buprenorphine/naloxone 2-0.5mg sublingual tablet SL SCH (20:00)
[2019-05-29] MEDS: QUEtiapine 25mg tablet PO SCH (20:59)
[2019-05-29] MEDS ORDERED: polyethylene glycol 3350 17gm powd pack PO ONE (21:00)
--- NOTE | 2019-05-29 21:02 | NUR ---
Miralax administered. ARNALDO 05/25/19 Addendum: 05/29/19 at 2225 by Staci Jurado RN Amended: Links added.
[2019-05-29] MEDS: ibuprofen 200mg tablet PO PRN (21:11)
[2019-05-29] MEDS: cyclobenzaprine 10mg tablet PO PRN (21:11)
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
[2019-05-30 08:10] VITALS: BP 90/58
[2019-05-30] MEDS: docusate sod 100mg capsule PO SCH ×2 (08:22→20:52)
[2019-05-30] MEDS: gabapentin 400mg capsule PO SCH ×3 (08:22→20:51)
[2019-05-30] MEDS: buprenorphine/naloxone 2-0.5mg sublingual tablet SL SCH ×2 (08:23→20:51)
[2019-05-30] MEDS: pantoprazole 40mg Tablet.DR PO SCH (08:23)
[2019-05-30] MEDS: voritoxetine HBr tablet 5 MG TABLET PO SCH (08:23)
[2019-05-30] MEDS: nicotine 14mg patch - 24hr TD SCH (08:25)
[2019-05-30] MEDS: magnesium hydroxide 30ml (MOM) UD suspension PO PRN (13:16)
--- NOTE | 2019-05-30 16:03 | NUR ---
Nursing Progress Note: Legal hold: 5250 Exp 06/10 @ 1030 Client on involuntary status for DTS Report received from nurse with use of SBAR: CHLOE Sanz Why are they here: Pt transferred from [facility] to [facility]. Hx of depression, which has been increasing significantly in the past two months. In March pt started cutting her wrists and thighs. Three days ago, pt attempted [place]. Pt states trigger for recent events is overwhelming debt. Assessment What has happened this shift: Pt rated her depression and anxiety at a 10/10 today, she denied SI/HI/AH/VH. Pt expressed feelings of hopelessness. Pt refused breakfast as she stated she felt bloated due to constipation. Bowel sounds are present X 4 though hypoactive, abdomen in non-tender. Pt continues on routine Colace 200 mg, provided/encouraged prune juice as well as applesauce. Pt did eat the applesauce but refused the prune juice. Administered prn MOM at 1317. Pt was evaluated by physical therapy today due to right ankle pain. PT recommends an X-ray as well as using FWW to reduce weight bearing pain, PT states patient has good balance and therapy is not indicated at this time. S/I, H/I: Pt denies A/VH: Pt denies Sleep: Pt slept 7 hours per noc shift report ADL's: Independent with encouragement Group attendance: No, pt declined Were meds taken: Yes Any med S/E: Constipation Mental Status Exam Appearance: Disheveled, wearing green scrubs. Pt has piercing in left cheek. Eye contact: Good Behavior: Isolates to self and room Speech: Soft, normal rate and rhythm Mood: Depressed, anxious Affect: Depressed, blunted, fatigued, apathetic, anhedonic Thought process: Perseverative Thought Content: Hopeless, helpless, perseverates on loss of car and purse as well as her financial debt. Cognition: A&O x4 Insight: Poor Judgment: Poor Interventions PRN's used: MOM Therapeutic interventions: 1:1 assessment, therapeutic conversation, encouragement to perform personal hygiene, encouragement to attend groups, medication administration/education/ monitoring, Q 15 min safety checks. Restraints/seclusion/emergency medication: N/A Justification of Continued Inpatient Treatment: Pt remains hopeless/helpless with severe depression and anxiety, she needs crisis interruption with medication adjustment and monitoring in a safe/therapeutic environment for pt safety and prevention of readmission.
[2019-05-30] MEDS ORDERED: magnesium citrate 296ml oral solution PO ONE (17:50)
[2019-05-30 19:00] VITALS: BP 113/69
[2019-05-30] MEDS: cyclobenzaprine 10mg tablet PO PRN (20:51)
[2019-05-30] MEDS: ibuprofen 200mg tablet PO PRN (20:51)
[2019-05-30] MEDS: QUEtiapine 25mg tablet PO SCH (20:52)
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
[2019-05-31 08:00] VITALS: BP 92/67
[2019-05-31] MEDS: gabapentin 400mg capsule PO SCH ×3 (08:28→20:29)
[2019-05-31] MEDS: pantoprazole 40mg Tablet.DR PO SCH (08:28)
[2019-05-31] MEDS: docusate sod 100mg capsule PO SCH ×2 (08:28→20:30)
[2019-05-31] MEDS: buprenorphine/naloxone 2-0.5mg sublingual tablet SL SCH ×2 (08:28→20:30)
[2019-05-31] MEDS: voritoxetine HBr tablet 5 MG TABLET PO SCH (08:28)
[2019-05-31] MEDS: nicotine 14mg patch - 24hr TD SCH (08:33)
--- NOTE | 2019-05-31 12:43 | NUR ---
Nursing Progress Note: Legal hold: 5250 Exp 06/10 @ 1030 Client on involuntary status for DTS Report received from nurse with use of SBAR: CHLOE Sanz Why are they here: Pt transferred from [facility] to [facility]. Hx of depression, which has been increasing significantly in the past two months. In March pt started cutting her wrists and thighs. Three days ago, pt attempted suicide by [place] car [place]. Pt states trigger for recent events is overwhelming debt. Assessment What has happened this shift: Pt appeared brighter today, face was more expressive. Pt stated that her depression was better today, rated it at a 7/10, denied SI, pt stated that her anxiety level was kind of an ebb and flow but at the moment of assessment rated it at a 7/10 as well. Pt reported having a large BM during the night after receiving mag citrate in the evening. She ate 100 % of breakfast. S/I, H/I: Pt denies A/VH: Pt denies Sleep: Pt slept 7 hours per noc shift report ADL's: Independent Group attendance: No Were meds taken: Yes Any med S/E: None noted or reported Mental Status Exam Appearance: Disheveled, wearing green scrubs. Pt has piercing in left cheek. Eye contact: Good Behavior: Isolates to self and room Speech: Soft, normal rate and rhythm Mood: Depressed, anxious Affect: Depressed Thought process: Linear, ruminates on losses Thought Content: She is feeling better and believes she will have a better day today. Cognition: A&O x4 Insight: Fair Judgment: Poor Interventions PRN's used: none Therapeutic interventions: 1:1 assessment, therapeutic conversation, encouragement to perform personal hygiene, positive reinforcement, encouragement to attend groups, medication administration/education/ monitoring, Q 15 min safety checks. Restraints/seclusion/emergency medication: N/A Justification of Continued Inpatient Treatment: Pt remains hopeless/helpless with severe depression and anxiety, she needs crisis interruption with medication adjustment and monitoring in a safe/therapeutic environment for pt safety and prevention of readmission.
--- NOTE | 2019-05-31 13:15 | NUR ---
Initial: Pt admit with depression. Currently on regular diet with fluctuating PO intake overall 100% with some refusal of meals. Per RN notes pt reports low PO intake r/t c/o bloating secondary to constipation, previously without a BM since 05/25. Pt declined prune juice but was given Colace, mag citrate, MoM, and applesauce. LBM now 05/31 and pt is encouraged to ambulate to help with regular BMs. Pt likely meeting nutrient needs given most PO intake is documented at 100% on regular diet. Pt with no edema or wounds. No nutrition diagnosis at this time. Will continue to follow. Recommendations: 1) Continue regular diet 2) Routine bowel care 3) Weekly wt Addendum: 05/31/19 at [address] Amended: Links added.
[2019-05-31 19:00] VITALS: BP 86/54
[2019-05-31] MEDS: QUEtiapine 25mg tablet PO SCH (20:29)
[2019-05-31] MEDS: ibuprofen 200mg tablet PO PRN (20:30)
[2019-05-31] MEDS: cyclobenzaprine 10mg tablet PO PRN (20:38)
--- NOTE | 2019-06-01 00:55 | NUR ---
NURSING PROGRESS REPORT: Legal hold: 5250 Exp 06/10 @ 1030 Client on involuntary status for DTS Report received from nurse with use of SBAR: CHARLES Kulkarni Why are they here: Pt transferred from [facility] to [facility]. Hx of depression, which has been increasing significantly in the past two months. In March pt started cutting her wrists and thighs. Three days ago, pt attempted suicide by [place] car [place] the [place]. Pt states trigger for recent events is overwhelming debt. Assessment What has happened this shift: Pt again isolating in room at shift change. Pt refused her dinner "I am just not feeling hungry." Pt states and looks like she is feeling not so depressed. Pt states "I have fleeting moments of hope." Pt reports chronic back pain 04/23, Flexeril and Motrin adminstered. Nicotine patch remained on patient. Pt states she did have a BM after her Mag Citrate last night. Pt reports having loose stool for most of the day. Continued to encourage patient to walk as this helps with her digestive system and to attend group. Pt still having a hard time being around other people. Pt medication compliant. S/I, H/I: Pt denies. None observed A/VH: Pt denies. None observed. 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 Pt has piercing in left cheek. Eye contact: Direct Behavior: Isolative, depressed Speech: Soft, normal rate and rhythm Mood: Depressed Affect: Blunted, a little more brighter Thought process: Linear Thought Content: "I have fleeting moments of hope" Cognition: A&Ox4 Insight: Poor Judgment: Poor Interventions PRN's used: Motrin, Flexeril Therapeutic interventions: Therapeutic interventions: 1:1 assessment, therapeutic conversation, encouragement to perform personal hygiene, encouragement to attend groups, encouragement to ambulate more to help with motility, medication administration/education/ monitoring, Q 15 min safety checks. Restraints/seclusion/emergency medication: N/A Justification of Continued Inpatient Treatment: Pt. requires interruption of current crisis, medication adjustments, and a safe and supportive environment. Pt presents as depressed and hopeless with complete lack of motivation. Pt requires persistent encouragement for ADLs and to help navigate paperwork regarding financial issues.
[2019-06-01 08:00] VITALS: BP 113/53
[2019-06-01] MEDS: voritoxetine HBr tablet 5 MG TABLET PO SCH (08:09)
[2019-06-01] MEDS: buprenorphine/naloxone 2-0.5mg sublingual tablet SL SCH ×2 (08:09→20:41)
[2019-06-01] MEDS: gabapentin 400mg capsule PO SCH ×3 (08:09→20:40)
[2019-06-01] MEDS: pantoprazole 40mg Tablet.DR PO SCH (08:09)
[2019-06-01] MEDS: docusate sod 100mg capsule PO SCH ×2 (08:10→20:00)
[2019-06-01] MEDS: nicotine 14mg patch - 24hr TD SCH (08:13)
--- NOTE | 2019-06-01 15:26 | NUR ---
Nursing Progress Note: Legal hold: 5250 Exp 06/10 @ 1030 Client on involuntary status for DTS Report received from nurse with use of SBAR: CHLOE Sanz Why are they here: Pt transferred from [facility] to [facility]. Hx of depression, which has been increasing significantly in the past two months. In March pt started cutting her wrists and thighs. Three days ago, pt attempted suicide by [place] car [place] the [place]. Pt states trigger for recent events is overwhelming debt. Assessment What has happened this shift: Pt reported that her depression and anxiety are the same today as they were yesterday, she denies SI/HI/AH/VH. Pt out of room for meals, mostly isolative to self and room. Pt reports that she has not had any urinary or bowel incontinence today or in the past couple of days, states that she has been able to make it to the bathroom and as long as she is close to a bathroom, she is fine. Dr Moran increased her Trintellix from 15 mg to 20 mg PO Q am. He also ordered a 3 view right ankle x-ray which showed a healing fracture with no acute findings. S/I, H/I: Pt denies A/VH: Pt denies Sleep: Pt slept 8 hours per noc shift report ADL's: Independent Group attendance: No Were meds taken: Yes Any med S/E: None noted or reported Mental Status Exam Appearance: clean, dressed in clean green scrubs, has a dermal piercing in left cheek Eye contact: Good Behavior: Isolates to self and room Speech: Soft, normal rate and rhythm Mood: Depressed, anxious Affect: Depressed Thought process: Organized, ruminates on losses Thought Content: Pt concerned about getting sick as she states many other patients have gotten sick, initially did not wish to leave her room for breakfast, wanted to eat in her room. Pt likes her dermal cheek piercing, hopes it stays in as the other 3 fell out. Cognition: A&O x4 Insight: Fair Judgment: Fair Interventions PRN's used: none Therapeutic interventions: 1:1 assessment, therapeutic conversation, encouraement to express her thoughts and feelings, encouragement to come out of her room, positive reinforcement, encouragement to attend groups, medication administration/education/ monitoring, Q 15 min safety checks. Restraints/seclusion/emergency medication: N/A Justification of Continued Inpatient Treatment: Pt remains hopeless with severe depression and anxiety, she needs crisis interruption with medication adjustment and monitoring in a safe/therapeutic environment for pt safety and prevention of readmission.
[2019-06-01 19:57] VITALS: BP 91/62
[2019-06-01] MEDS: clonazePAM 0.5mg tablet PO PRN (20:09)
[2019-06-01] MEDS: QUEtiapine 25mg tablet PO SCH (20:40)
[2019-06-01] MEDS: acetaminophen 325mg tablet PO PRN (20:45)
[2019-06-01] MEDS: ibuprofen 200mg tablet PO PRN (21:15)
--- NOTE | 2019-06-02 03:41 | NUR ---
NURSING PROGRESS REPORT: Legal hold: 5250 Exp 06/10 @ 1030 Client on involuntary status for DTS Report received from nurse with use of SBAR: CHARLES Walter Why are they here: Pt transferred from [facility] to [facility]. Hx of depression, which has been increasing significantly in the past two months. In March pt started cutting her wrists and thighs. Three days ago, pt attempted suicide by [place] car [place]. Pt states trigger for recent events is overwhelming debt. Assessment What has happened this shift: Pt isolating in room at change of shift, Pt was wringing her hands, stated she is anxious 10/10. When asked to elaborate, pt stated that she had been thinking about the visit she had with her sister. "I just don't know why she came, she wants to help me but she can't". Pt continues to express like she is a burden and does not feel like there is any solution. With encouragement, pt used walker to attend HS snack. Pt med compliant and went to bed after administration. S/I, H/I: Pt denies. None observed A/VH: Pt denies. None observed. Sleep: See sleep assessment ADL's: Independent Group attendance: N/A Were meds taken: Yes Any med S/E: None reported or observed Mental Status Exam Appearance: Disheveled, wearing green scrubs. Pt has piercing in left cheek. Eye contact: Direct Behavior: Isolative Speech: Soft, normal rate and rhythm Mood: Depressed Affect: Blunted Thought process: Linear Thought Content: ruminating on visit with sister Cognition: A&Ox4 Insight: Poor Judgment: Poor Interventions PRN's used: Motrin,Tylenol, Klonopin Therapeutic interventions: Therapeutic interventions: 1:1 assessment, therapeutic conversation, encouragement to perform personal hygiene, encouragement to attend groups, encouragement to ambulate more to help with motility, medication administration/education/ monitoring, Q 15 min safety checks. Restraints/seclusion/emergency medication: N/A Justification of Continued Inpatient Treatment: Pt. requires interruption of current crisis, medication adjustments, and a safe and supportive environment. Pt presents as depressed and hopeless with complete lack of motivation. Pt requires persistent encouragement for ADLs and to help navigate paperwork regarding financial issues.
[2019-06-02 07:43] VITALS: BP 90/60
[2019-06-02] MEDS: nicotine 14mg patch - 24hr TD SCH (07:46)
[2019-06-02] MEDS: pantoprazole 40mg Tablet.DR PO SCH (07:46)
[2019-06-02] MEDS: gabapentin 400mg capsule PO SCH ×3 (07:46→20:43)
[2019-06-02] MEDS: docusate sod 100mg capsule PO SCH ×2 (07:50→19:47)
[2019-06-02] MEDS: voritoxetine HBr tablet 5 MG TABLET PO SCH (07:52)
[2019-06-02] MEDS: buprenorphine/naloxone 2-0.5mg sublingual tablet SL SCH ×2 (07:53→19:47)
[2019-06-02] MEDS: clonazePAM 0.5mg tablet PO PRN (15:44)
--- NOTE | 2019-06-02 17:25 | NUR ---
NURSING PROGRESS REPORT: Legal hold: 5250 Exp 06/10 @ 1030 Client on involuntary status for DTS Report received from nurse with use of SBAR: Caryn RN Why are they here: Pt transferred from [facility] to [facility]. Hx of depression, which has been increasing significantly in the past two months. In March pt started cutting her wrists and thighs. Three days ago, pt attempted suicide by [place] car [place]. Pt states trigger for recent events is overwhelming debt. Assessment What has happened this shift: Pt is resting in bed at change of shift. Pt reports that she is feeling a little better today. She is smiling during assessment and states that she is "trying to have hope". She states that her depression is getting better and her anxiety "comes and goes". She denies any S/I, H/I, A/H and V/H. She reports that she has been having diarrhea but states that this may be related to the medications and interventions for the constipation that she had last week. She reports that she has had no incontinent episodes since being here on the unit. She is up in the community room for meals but does not attend groups. She states that she still does not want to be around people. After lunch, Pt reported that she was having a panic attack and requested medication intervention. PRN Klonopin was given with moderate relief. Pt was tearful and stated she has "no exit plan, and I do not know ho I am going to put my life back together". This RN provided active listening and discussed with patient that it is important to focus on feeling better and healing and try not to get too concerned about things in the future. Pt stopped crying and stated "I can talk to [place] the health and social care teacher about what the best option is; I will ask her if bankruptcy or loan consolidation will be best". Pt received a phone call during our conversation and this RN left the room to give Pt privacy. S/I, H/I: Pt denies. None observed A/VH: Pt denies. None observed. Sleep: rests throughout the day ADL's: Independent Group attendance: no Were meds taken: Yes Any med S/E: None reported or observed Mental Status Exam Appearance: Disheveled, wearing green scrubs. Pt has piercing in left cheek. Eye contact: Direct Behavior: Isolative Speech: Soft, normal rate and rhythm Mood: Depressed but with brightening Affect: Blunted Thought process: Linear Thought Content: "I am trying to have a little hope today"; loss of bank card and ID; Loss of car Cognition: A&Ox4 Insight: Poor to fair Judgment: Poor Interventions PRN's used: Mary Therapeutic interventions: Therapeutic interventions: 1:1 assessment, therapeutic conversation, encouragement to perform personal hygiene, encouragement to attend groups, encouragement to ambulate more to help with motility, medication administration/education/ monitoring, Q 15 min safety checks. Restraints/seclusion/emergency medication: N/A Justification of Continued Inpatient Treatment: Pt. requires interruption of current crisis, medication adjustments, and a safe and supportive environment. Pt presents as depressed and hopeless with complete lack of motivation. Pt requires persistent encouragement for ADLs and to help navigate paperwork regarding financial issues.
[2019-06-02] MEDS: acetaminophen 325mg tablet PO PRN (20:43)
[2019-06-02] MEDS: ibuprofen 200mg tablet PO PRN (20:43)
[2019-06-02] MEDS: QUEtiapine 25mg tablet PO SCH (20:44)
[2019-06-02 20:45] VITALS: BP 90/64
--- NOTE | 2019-06-03 03:33 | NUR ---
NURSING PROGRESS REPORT: Legal hold: 5250 Exp 06/10 @ 1030 Client on involuntary status for DTS Report received from nurse with use of SBAR: CHARLES Walter Why are they here: Pt transferred from [facility] to [facility]. Hx of depression, which has been increasing significantly in the past two months. In March pt started cutting her wrists and thighs. Three days ago, pt attempted [place] by [place]. Pt states trigger for recent events is overwhelming debt. Assessment What has happened this shift: Pt laying in bed at change of shift. During 1:1, pt is noticebly brighter, stating "I'm feeling alright today" while smiling and occasionally laughing. Pt shared the her brother called today and that it is nice to have "emotional support". Pt states she is going to all groups except art; RN encouraged pt to attend the art group as it is one of the favorites amongst patients. Pt stated she wasn't good at art and was feeling unsure but would think about going next art group. Pt stated she wasn't feeling anxious but that her depression was less today, "I spent less time ruminating". RN encouraged pt to shower (pt accepted the offer) and to walk around and attend HS snack with the FWW. Pt stayed up for a while before returning to her room for med pass. Pt took PRNs for her chronic back pain. S/I, H/I: Pt denies. None observed A/VH: Pt denies. None observed. Sleep: See Sleep Assessment ADL's: Independent, Showered 06/01 Group attendance: No Were meds taken: Medication Compliant, Colace held Any med S/E: None reported or observed Mental Status Exam Appearance: Disheveled, wearing green scrubs. Pt has piercing in left cheek. Eye contact: Direct Behavior: Went to group room for snack but did not eat, took a shower, paced the unit a few times Speech: Soft, normal rate and rhythm Mood: "I'm feeling alright today" Affect: Bright Thought process: Linear Thought Content: good conversation with her brother, not overthinking today Cognition: A&Ox4 Insight: Poor to Fair Judgment: Poor Interventions PRN's used: Motrin, Tylenol Therapeutic interventions: Therapeutic interventions: 1:1 assessment, therapeutic conversation, encouragement to perform personal hygiene, encouragement to attend groups, encouragement to ambulate more to help with motility, medication administration/education/ monitoring, Q 15 min safety checks. Restraints/seclusion/emergency medication: N/A Justification of Continued Inpatient Treatment: Pt. requires interruption of current crisis, medication adjustments, and a safe and supportive environment. Pt presents as depressed and hopeless with complete lack of motivation. Pt requires persistent encouragement for ADLs and to help navigate paperwork regarding financial issues.
[2019-06-03 07:34] VITALS: BP 99/58
[2019-06-03] MEDS: docusate sod 100mg capsule PO SCH ×2 (08:00→19:39)
[2019-06-03] MEDS: pantoprazole 40mg Tablet.DR PO SCH (08:22)
[2019-06-03] MEDS: nicotine 14mg patch - 24hr TD SCH (08:22)
[2019-06-03] MEDS: voritoxetine HBr tablet 5 MG TABLET PO SCH (08:22)
[2019-06-03] MEDS: gabapentin 400mg capsule PO SCH ×3 (08:22→21:15)
[2019-06-03] MEDS: buprenorphine/naloxone 2-0.5mg sublingual tablet SL SCH ×2 (08:22→19:39)
[2019-06-03] MEDS: LORazepam 1 MG tablet PO PRN (08:47)
[2019-06-03] MEDS: hydrOXYzine 25 MG tablet PO PRN (12:24)
--- NOTE | 2019-06-03 15:48 | NUR ---
NURSING PROGRESS REPORT: Legal hold: 5250 Exp 06/10 @ 1030 Client on involuntary status for DTS Report received from nurse with use of SBAR: CHARLES Walter Why are they here: Pt transferred from [facility] to [facility]. Hx of depression, which has been increasing significantly in the past two months. In March pt started cutting her wrists and thighs. Three days ago, pt attempted [place] by [place]. Pt states trigger for recent events is overwhelming debt. Assessment What has happened this shift: Pt laying in bed at change of shift. She takes her miedications without protest or uincident. She reports that she is anxious but that her depression is less today, "I spent less time ruminating". PRN Ativan and hydroxizine give with moderate relief. Pt eats all her meals in the community room and participates in groups. She is seen resting intermittently in bed throughout the day and continues to isolate. She states "I am just not doing well today". When Pt is asked to elaborate on this statement she states "I don't know". When asked if she wanted to talk more about this, Pt declined and states that she just wants to rest. S/I, H/I: Pt denies. None observed A/VH: Pt denies. None observed. Sleep: See Sleep Assessment ADL's: Independent, Showered 06/01 Group attendance: No Were meds taken: Medication Compliant, Colace held Any med S/E: None reported or observed Mental Status Exam Appearance: Disheveled, wearing green scrubs. Pt has piercing in left cheek. Eye contact: Direct Behavior: Went to group room for snack but did not eat, took a shower, paced the unit a few times Speech: Soft, normal rate and rhythm Mood: "I'm feeling alright today" Affect: Bright Thought process: Linear Thought Content: good conversation with her brother, not overthinking today Cognition: A&Ox4 Insight: Poor to Fair Judgment: Poor Interventions PRN's used: Ativan, hydroxizine Therapeutic interventions: Therapeutic interventions: 1:1 assessment, therapeutic conversation, encouragement to perform personal hygiene, encouragement to attend groups, encouragement to ambulate more to help with motility, medication administration/education/ monitoring, Q 15 min safety checks. Restraints/seclusion/emergency medication: N/A Justification of Continued Inpatient Treatment: Pt. requires interruption of current crisis, medication adjustments, and a safe and supportive environment. Pt presents as depressed and hopeless with complete lack of motivation. Pt requires persistent encouragement for ADLs and to help navigate paperwork regarding financial issues.
[2019-06-03] MEDS ORDERED: QUEtiapine 25mg tablet PO ONE (16:00)
[2019-06-03] MEDS: acetaminophen 325mg tablet PO PRN (19:40)
[2019-06-03] MEDS: ibuprofen 200mg tablet PO PRN (19:40)
[2019-06-03] MEDS: QUEtiapine 25mg tablet PO SCH (20:37)
[2019-06-03 21:33] VITALS: BP 99/61
--- NOTE | 2019-06-04 01:47 | NUR ---
NURSING PROGRESS REPORT: Legal hold: 5250 Exp 06/10 @ 1030 Client on involuntary status for DTS Report received from nurse with use of SBAR: CHARLES Walter Why are they here: Pt transferred from [facility] to [facility]. Hx of depression, which has been increasing significantly in the past two months. In March pt started cutting her wrists and thighs. Three days ago, pt attempted [place] by [place] car [place] the [place]. Pt states trigger for recent events is overwhelming debt. Assessment What has happened this shift: Pt laying in bed at change of shift. Pt is blunted today, making indirect eye contact but occasionally smiling at appropriate moments. Pt stated "I'm doing better than this morning, but not as good as yesterday." RN asked pt to elaborate as to why she thinks that is; "Maybe because I had to meet with the psychiatrist and it just brings everything up. I wasn't over-thinking as much yesterday but when I talk to the doctor I just get worked up and begin ruminating. Pt stated depression is 8/10 and anxiety 3/10. RN encouraged pt to walk around and attend HS snack with the FWW. Pt states the FWW is "embarrassing" but RN reminded the pt it is only a temporary measure as her ankle heals. Pt admitted using it relieved pain while walking. Pt opted to isolate to room entire evening. Pt retired to sleep after medication administration. Pt took PRNs for her chronic back pain. S/I, H/I: Pt denies. None observed A/VH: Pt denies. None observed. Sleep: See Sleep Assessment ADL's: Independent Group attendance: N/A Were meds taken: Medication Compliant, Colace held Any med S/E: None reported or observed Mental Status Exam Appearance: Clean, wearing unit scrubs. Hair is brushed. Pt has piercing in left cheek. Eye contact: Indirect Behavior: Isolated to room Speech: Soft, normal rate and rhythm Mood: "Better" Affect: Blunted with minimal brightening Thought process: Linear Thought Content: Ruminating over her conversation with her brother the day before and visit with the psychiatrist Cognition: A&Ox4 Insight: Poor to Fair Judgment: Poor Interventions PRN's used: Motrin, Tylenol Therapeutic interventions: Therapeutic interventions: 1:1 assessment, therapeutic conversation, encouragement to perform personal hygiene, encouragement to attend groups, encouragement to ambulate more to help with motility, medication administration/education/ monitoring, Q 15 min safety checks. Restraints/seclusion/emergency medication: N/A Justification of Continued Inpatient Treatment: Pt. requires interruption of current crisis, medication adjustments, and a safe and supportive environment. Pt presents as depressed and hopeless with complete lack of motivation. Pt requires persistent encouragement for ADLs and to help navigate paperwork regarding financial issues.
[2019-06-04 07:00] VITALS: BP 88/55
[2019-06-04] MEDS: voritoxetine HBr tablet 5 MG TABLET PO SCH (08:23)
[2019-06-04] MEDS: buprenorphine/naloxone 2-0.5mg sublingual tablet SL SCH ×2 (08:23→20:21)
[2019-06-04] MEDS: gabapentin 400mg capsule PO SCH ×3 (08:23→20:20)
[2019-06-04] MEDS: pantoprazole 40mg Tablet.DR PO SCH (08:24)
[2019-06-04] MEDS: nicotine 14mg patch - 24hr TD SCH (08:24)
[2019-06-04] MEDS: docusate sod 100mg capsule PO SCH ×2 (08:24→20:21)
[2019-06-04] MEDS: QUEtiapine 25mg tablet PO PRN (08:35)
[2019-06-04] MEDS: acetaminophen 325mg tablet PO PRN ×2 (08:35→17:25)
[2019-06-04] MEDS: clonazePAM 0.5mg tablet PO PRN ×2 (11:02→17:24)
[2019-06-04] MEDS: cyclobenzaprine 10mg tablet PO PRN (17:25)
--- NOTE | 2019-06-04 17:41 | NUR ---
NURSING PROGRESS REPORT Legal hold: 5250 Exp 06/10 @ 1030 Client on involuntary status for DTS Report received from nurse with use of SBAR: CHARLES Goncalves Why are they here: Pt transferred from [facility] to [facility]. Hx of depression, which has been increasing significantly in the past two months. In March pt started cutting her wrists and thighs. Three days ago, pt attempted suicide by [place] car [place] the [place]. Pt states trigger for recent events is overwhelming debt. Assessment What has happened this shift: Patient continues to lay in bed and isolate for the majority of the day., sleeps much of the day. States that she is not doing well. She is concerned about her loss of her drivers license and her debit card. Informed her that she could call and take care of these while she is here and start untangling some of the things now that are too overwhelming for her. Pt. Does have chronic back pain, old fractures. S/I, H/I: Pt denies. None observed A/VH: Pt denies. None observed. Sleep: 10 hrs NOC, naps during day. ADL's: Independent Group attendance: Sat through part of group. Were meds taken: Yes. Any med S/E: None reported or observed Mental Status Exam Appearance: Clean, wearing unit attire. Pt has piercing in left cheek. Eye contact: Direct Behavior: Isolates to room. Does not talk to anyone unless conversation is initiated. Speech: Soft, normal rate and rhythm Mood: "Im not doing well" Affect: Flat. Thought process: Linear Thought Content: Financial worries. Cognition: A&Ox4 Insight: Poor to Fair Judgment: Poor Interventions PRN's used: Klonopin, Tylenol, Flexeril. Therapeutic interventions: Therapeutic interventions: 1:1 assessment, therapeutic conversation, encouragement to perform personal hygiene, encouragement to attend groups, encouraged increased p.o. Fluid intake, encouragement to ambulate more to help with motility, medication administration/education/ monitoring, Q 15 min safety checks. Restraints/seclusion/emergency medication: N/A Justification of Continued Inpatient Treatment: Pt. requires interruption of current crisis, medication adjustments, and a safe and supportive environment. Pt presents as depressed and hopeless with complete lack of motivation. Pt requires persistent encouragement for ADLs and to help navigate paperwork regarding financial issues.
[2019-06-04] MEDS: QUEtiapine 25mg tablet PO SCH (20:20)
[2019-06-04 20:40] VITALS: BP 98/57
--- NOTE | 2019-06-05 01:22 | NUR ---
NURSING PROGRESS REPORT: Legal hold: 5250 Exp 06/10 @ 1030 Client on involuntary status for DTS Report received from nurse with use of SBAR: Violette RN Why are they here: Pt transferred from [facility] to [facility]. Hx of depression, which has been increasing significantly in the past two months. In March pt started cutting her wrists and thighs. Three days ago, pt attempted suicide by driving car [place] the [place]. Pt states trigger for recent events is overwhelming debt. Assessment What has happened this shift: Patient i sin her room sleeping at change of shift. She stays their and isolates the whole evening. She is friendly and cooperative for a 1:1 assessment. She presents with a blunted affect and remains laying in bed and does not sit up during the assessment at all. She reports her day as "Not good, but I did go to groups." She say's her day was not good due to her not having her debit card and ID. She seems to perseverate on this. Patient is assisted with coming up with a plan to call her bank to request them to mail her a debit card to her home address, and once that is obtained she can pay for a new ID. Patient presents as hopeless/helpless as if even with a viable plan the situation still can not be resolved. She is compliant with HS medications S/I, H/I: Denies A/VH: Denies Sleep: See Sleep Assessment ADL's: Independent Group attendance: No groups this shift Were meds taken: Yes Any med S/E: None reported or observed Mental Status Exam Appearance: Clean, wearing unit scrubs. Eye contact: Indirect Behavior: Isolates in her room Speech: Soft, normal rate and rhythm Mood: "Not good", hopeless Affect: Blunted Thought process: Linear Thought Content: Ruminating over her debit car and ID that needs to be replaced. Cognition: A&Ox4 Insight: Poor to Fair Judgment: Poor Interventions PRN's used: None Therapeutic interventions: Therapeutic interventions: 1:1 assessment, therapeutic conversation, encouragement to perform personal hygiene, encouragement to attend groups, encouragement to ambulate more to help with motility, medication administration/education/ monitoring, Q 15 min safety checks. Restraints/seclusion/emergency medication: N/A Justification of Continued Inpatient Treatment: Pt. requires interruption of current crisis, medication adjustments, and a safe and supportive environment. Pt presents as depressed and hopeless with complete lack of motivation. Pt requires persistent encouragement for ADLs and to help navigate paperwork regarding financial issues.
[2019-06-05 07:00] VITALS: BP 107/54
[2019-06-05] MEDS: docusate sod 100mg capsule PO SCH ×2 (07:32→20:22)
[2019-06-05] MEDS: gabapentin 400mg capsule PO SCH ×3 (07:32→20:22)
[2019-06-05] MEDS: voritoxetine HBr tablet 5 MG TABLET PO SCH (07:32)
[2019-06-05] MEDS: buprenorphine/naloxone 2-0.5mg sublingual tablet SL SCH ×2 (07:32→20:21)
[2019-06-05] MEDS: pantoprazole 40mg Tablet.DR PO SCH (07:33)
[2019-06-05] MEDS: QUEtiapine 25mg tablet PO PRN ×2 (08:56→13:23)
[2019-06-05] MEDS: nicotine 14mg patch - 24hr TD SCH (08:57)
[2019-06-05] MEDS: clonazePAM 0.5mg tablet PO PRN ×2 (13:23→19:26)
[2019-06-05] MEDS: acetaminophen 325mg tablet PO PRN (13:24)
[2019-06-05] MEDS: magnesium hydroxide 30ml (MOM) UD suspension PO PRN (13:25)
--- NOTE | 2019-06-05 18:17 | NUR ---
NURSING PROGRESS REPORT Legal hold: 5250 Client on involuntary status for DTS Report received from nurse with use of SBAR: Ivanna RN Why are they here: Pt transferred from [facility] to [facility]. Hx of depression, which has been increasing significantly in the past two months. In March pt started cutting her wrists and thighs. Three days ago, pt attempted suicide by [place] car [place] the [place]. Pt states trigger for recent events is overwhelming debt. Assessment What has happened this shift: Patient continues to lay in bed and isolate for the majority of the day., sleeps much of the day. States that she is not doing well. She is concerned about her loss of her drivers license and her debit card. Informed her that she could call and take care of these while she is here and start untangling some of the things now that are too overwhelming for her. Pt. Does have chronic back pain, old fractures. S/I, H/I: Pt denies. None observed A/VH: Pt denies. None observed. Sleep: 10 hrs NOC, naps during day. ADL's: Independent Group attendance: Sat through part of group. Were meds taken: Yes. Any med S/E: None reported or observed Mental Status Exam Appearance: Clean, wearing unit attire. Pt has piercing in left cheek. Eye contact: Direct Behavior: Isolates to room. Does not talk to anyone unless conversation is initiated. Speech: Soft, normal rate and rhythm Mood: "Im not doing well" Affect: Flat. Thought process: Linear Thought Content: Financial worries. Cognition: A&Ox4 Insight: Poor to Fair Judgment: Poor Interventions PRN's used: Klonopin, Tylenol, Flexeril. Therapeutic interventions: Therapeutic interventions: 1:1 assessment, therapeutic conversation, encouragement to perform personal hygiene, encouragement to attend groups, encouraged increased p.o. Fluid intake, encouragement to ambulate more to help with motility, medication administration/education/ monitoring, Q 15 min safety checks. Restraints/seclusion/emergency medication: N/A Justification of Continued Inpatient Treatment: Pt. requires interruption of current crisis, medication adjustments, and a safe and supportive environment. Pt presents as depressed and hopeless with complete lack of motivation. Pt requires persistent encouragement for ADLs and to help navigate paperwork regarding financial issues.
[2019-06-05 19:49] VITALS: BP 97/63
[2019-06-05] MEDS: QUEtiapine 25mg tablet PO SCH (20:23)
--- NOTE | 2019-06-05 23:03 | NUR ---
NURSING PROGRESS REPORT Legal hold: 5250 Client on involuntary status for DTS Report received from nurse with use of SBAR: CHARLES Kulkarni Why are they here: Pt transferred from [facility] to [facility]. Hx of depression, which has been increasing significantly in the past two months. In March pt started cutting her wrists and thighs. Three days ago, pt attempted suicide by [place] car [place]. Pt states trigger for recent events is overwhelming debt. Assessment Patient talking with the doctor at the beginning of shift. Once finished she paced the wilkins briefly and then laid in her bed where she's remained at this time. Patient was able to explain how/why she was admitted to the unit. The patient opened up when this lyric writer began asking open ended questions. The patient and this lyric writer began with if she had any children in which stated she did not. 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 This lyric writer asked how she ended her career and she shrugged her shoulders and stated, "I just kind of stopped." When asked when her depression started she claimed around the time of ending her career. This lyric writer asked the patient if she had any close relationships such as family, friends, or significant other and she was only able to state one and she explained he was an ex-boyfriend that became a close friend. The patient explained that her friend has been calling to check on her since her suicide attempt and that appeared to make her happy as she smiled and lightened up. The patient continues to feel she'd be a harm to herself if she weren't on the unit. S/I, H/I: Pt denies: S/I with no clear plan. A/VH: Pt denies. denied Sleep: asleep at this time ADL's: Independent Group attendance: no Were meds taken: Yes. Any med S/E: None reported or observed Mental Status Exam Appearance: Clean, wearing unit attire. Pt has piercing in left cheek. Hair brushed and well kept. Eye contact: Direct Behavior: Isolates to room. Does not talk to anyone unless conversation is initiated. Speech: Soft, normal rate and rhythm Mood: Depressed Affect: Flat. Thought process: Linear Thought Content: pain, anxiety, depression Cognition: A&Ox4 Insight: Poor to Fair Judgment: Poor Interventions PRN's used: Mary, jailene Therapeutic interventions: Therapeutic interventions: 1:1 assessment, therapeutic conversation, encouragement to perform personal hygiene, encouragement to attend groups, encouraged increased p.o. Fluid intake, encouragement to ambulate more to help with motility, medication administration/education/ monitoring, Q 15 min safety checks. Restraints/seclusion/emergency medication: N/A Justification of Continued Inpatient Treatment: Pt. requires interruption of current crisis, medication adjustments, and a safe and supportive environment. Pt presents as depressed and hopeless with complete lack of motivation. Pt requires persistent encouragement for ADLs and to help navigate paperwork regarding financial issues.
[2019-06-06] MEDS: voritoxetine HBr tablet 5 MG TABLET PO SCH (07:40)
[2019-06-06] MEDS: QUEtiapine 25mg tablet PO SCH ×4 (07:40→20:36)
[2019-06-06] MEDS: buprenorphine/naloxone 2-0.5mg sublingual tablet SL SCH ×2 (07:40→20:37)
[2019-06-06] MEDS: pantoprazole 40mg Tablet.DR PO SCH (07:40)
[2019-06-06] MEDS: gabapentin 400mg capsule PO SCH ×3 (07:40→20:36)
[2019-06-06] MEDS: docusate sod 100mg capsule PO SCH ×2 (07:40→20:37)
[2019-06-06] MEDS: nicotine 14mg patch - 24hr TD SCH (07:44)
[2019-06-06 08:00] VITALS: BP 92/60
--- NOTE | 2019-06-06 11:25 | NUR ---
Reassessment: Continues to eat well, great appetite, eating 75-100% of meals. LBM now 06/05, constipation no longer documented as of today with moderate stool output. No nutrition diagnosis at this time. Will continue to follow.. Recommendations: 1) Continue regular diet 2) Routine bowel care 3) Weekly wt Addendum: 06/06/19 at [address] Amended: Links added.
[2019-06-06] MEDS: ibuprofen 200mg tablet PO PRN (12:06)
--- NOTE | 2019-06-06 13:39 | NUR ---
NURSING PROGRESS REPORT Legal hold: 5250 Client on involuntary status for DTS Report received from nurse with use of SBAR: CHARLES Constantino Why are they here: Pt transferred from [facility] to [facility]. Hx of depression, which has been increasing significantly in the past two months. In March pt started cutting her wrists and thighs. Three days ago, pt attempted suicide by driving car [place] the [place]. Pt states trigger for recent events is overwhelming debt. Assessment In regards to patient's depression today, pt stated, "it's okay." Pt denied SI/HI/AH/VH. She requested prn ibuprofen 600 mg at 1208 for 8/10 right ankle pain. Pt had not been using the walker today, encouraged pt to use the FWW to minimize pain from weight bearing, pt expressed understanding. S/I, H/I: Pt denies A/VH: Pt denies Sleep: Pt reports sleeping well ADL's: Independent Group attendance: Yes Were meds taken: Yes. Any med S/E: None reported or observed Mental Status Exam Appearance: Clean, wearing unit attire. Pt has piercing in left cheek. Hair brushed and well kept. Eye contact: Good Behavior: Pleasant, cooperative, mostly isolative to self Speech: Soft, normal rate and rhythm Mood: "okay" Affect: Bright Thought process: Linear Thought Content: Doesn't know why her right ankle is hurting so much today Cognition: A&Ox4 Insight: Fair Judgment: Poor Interventions PRN's used: Ibuprofen 600 mg Therapeutic interventions: Therapeutic interventions: 1:1 assessment, therapeutic conversation, encouragement to attend groups, encouragement to use FWW, medication administration/education/monitoring, Q 15 min safety checks. Restraints/seclusion/emergency medication: N/A Justification of Continued Inpatient Treatment: Pt. requires interruption of current crisis, medication adjustments, and a safe and supportive environment. Pt presents as depressed and hopeless with complete lack of motivation. Pt requires persistent encouragement for ADLs and to help navigate paperwork regarding financial issues.
[2019-06-06] MEDS: clonazePAM 0.5mg tablet PO PRN (17:59)
[2019-06-06 19:16] VITALS: BP 100/70
--- NOTE | 2019-06-07 00:26 | NUR ---
NURSING PROGRESS REPORT Legal hold: 5250 Client on involuntary status for DTS Report received from nurse with use of SBAR: CHARLES Kulkarni Why are they here: Pt transferred from [facility] to [facility]. Hx of depression, which has been increasing significantly in the past two months. In March pt started cutting her wrists and thighs. Three days ago, pt attempted suicide by [place] car [place]. Pt states trigger for recent events is overwhelming debt. Assessment What happened this shift: Patient visible on the unit at the beginning of shift. The patient and her roommate appear to be getting along well as they paced the hallway together and snack in group room together. Patient used her walker while ambulating this shift. C/O ankle discomfort during the day but no breakthrough pain this shift. Patient continues to c/o depression but doesn't feel suicidal at this time and doesn't feel she'd attempt suicide outside the unit. S/I, H/I: Pt denies: denied A/VH: Pt denies. denied Sleep: asleep at this time ADL's: Independent Group attendance: group room for snack Were meds taken: Yes. Any med S/E: None reported or observed Mental Status Exam Appearance: Clean, wearing unit attire. Pt has piercing in left cheek. Hair brushed and well kept. Eye contact: Direct Behavior: pacing the unit and conversing with roommate Speech: Soft, normal rate and rhythm Mood: Depressed Affect: Flat. Thought process: Linear Thought Content: pain, anxiety, depression Cognition: A&Ox4 Insight: Poor to Fair Judgment: Poor Interventions PRN's used: none at this time Therapeutic interventions: Therapeutic interventions: 1:1 assessment, therapeutic conversation, encouragement to perform personal hygiene, encouragement to attend groups, encouraged increased p.o. Fluid intake, encouragement to ambulate more to help with motility, medication administration/education/ monitoring, Q 15 min safety checks. Restraints/seclusion/emergency medication: N/A Justification of Continued Inpatient Treatment: Pt. requires interruption of current crisis, medication adjustments, and a safe and supportive environment. Pt presents as depressed and hopeless with complete lack of motivation. Pt requires persistent encouragement for ADLs and to help navigate paperwork regarding financial issues.
[2019-06-07 08:00] VITALS: BP 92/65
[2019-06-07] MEDS: pantoprazole 40mg Tablet.DR PO SCH (08:11)
[2019-06-07] MEDS: QUEtiapine 25mg tablet PO SCH ×4 (08:11→20:43)
[2019-06-07] MEDS: voritoxetine HBr tablet 5 MG TABLET PO SCH (08:11)
[2019-06-07] MEDS: docusate sod 100mg capsule PO SCH ×2 (08:11→20:43)
[2019-06-07] MEDS: gabapentin 400mg capsule PO SCH ×3 (08:11→20:43)
[2019-06-07] MEDS: buprenorphine/naloxone 2-0.5mg sublingual tablet SL SCH ×2 (08:11→20:43)
[2019-06-07] MEDS: nicotine 14mg patch - 24hr TD SCH (08:15)
[2019-06-07] MEDS: ibuprofen 200mg tablet PO PRN ×2 (08:17→17:37)
[2019-06-07] MEDS: magnesium hydroxide 30ml (MOM) UD suspension PO PRN (12:25)
--- NOTE | 2019-06-07 13:58 | NUR ---
NURSING PROGRESS REPORT Legal hold: 5250 Client on involuntary status for DTS Report received from nurse with use of SBAR: Zari Gibbons RN Why are they here: Pt transferred from [facility] to [facility]. Hx of depression, which has been increasing significantly in the past two months. In March pt started cutting her wrists and thighs. Three days ago, pt attempted suicide by [place] car [place]. Pt states trigger for recent events is overwhelming debt. Assessment Pt states that she is still depressed. She becomes overwhelmed when she starts thinking about her debt and not having a car. Pt states her foot hurts and she can't walk very far so doesn't know how she is going to be able to get around. Explored possibilities of friends with cars as well as the idea of a bicycle. 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 Pt believes she is $10,000 to $15,000 in debt. Pt stated she has around 15 credit cards, "I had excellent credit." Discussed contacting a debt consolidation company but pt does not seem responsive to this at this time. Discussed how pt will have enough money for a roof over her head and food, pt stated she didn't know how she would go grocery shopping. Discussed grocery store delivery services, pt replied, "yeah, but I bet that's expensive." Returned to topic of friend with a car who could maybe take her shopping. Pt replied that the friend already is always driving everybody else in the [place] park around so she doesn't wish to bother her. Pt requested prn ibuprofen 600 mg at 0820 for right ankle pain and MOM at 1225 for constipation, encouraged pt to use walker to reduce pain from full weight bearing. Pt's right ankle is discolored she believes it is a bruise but she has had it for quite some time. S/I, H/I: Pt denies A/VH: Pt denies Sleep: Slept 8.25 hours per noc shift report ADL's: Independent Group attendance: Yes Were meds taken: Yes. Any med S/E: None reported or observed Mental Status Exam Appearance: Clean, wearing unit attire. Pt has piercing in left cheek. Hair brushed and well kept. Eye contact: Good Behavior: Pleasant, cooperative, socializes with roommate Speech: Soft, normal rate and rhythm Mood: depressed Affect: depressed Thought process: ruminates Thought Content: Hopeless, helpless, overwhelmed by situation, having difficulty focusing on the positives, ruminates on negatives; what she no longer has, what she can no longer do. Cognition: A&Ox4 Insight: Fair Judgment: FAir Interventions PRN's used: Ibuprofen 600 mg @ 0820, MOM @ 1225 Therapeutic interventions: Therapeutic interventions: 1:1 assessment, therapeutic conversation, encouragement to attend groups, encouragement to use FWW, medication administration/education/monitoring, positive reinforcement, Q 15 min safety checks. Restraints/seclusion/emergency medication: N/A Justification of Continued Inpatient Treatment: Pt. requires interruption of current crisis, medication adjustments, and a safe and supportive environment. Pt presents as depressed and hopeless and remains overwhelmed debt and loss of car. Pt requires persistent encouragement for ADLs and to help navigate paperwork regarding financial issues.
[2019-06-07 19:59] VITALS: BP 82/54
--- NOTE | 2019-06-07 21:54 | NUR ---
NURSING PROGRESS REPORT Legal hold: 5250 Client on involuntary status for DTS Report received from nurse with use of SBAR: CHARLES Kulkarni Why are they here: Pt transferred from [facility] to [facility]. Hx of depression, which has been increasing significantly in the past two months. In March pt started cutting her wrists and thighs. Three days ago, pt attempted [place] by [place]. Pt states trigger for recent events is overwhelming debt. Assessment What happened this shift: Patient laying in bed at the beginning of shift where she has remained at this time. Patient c/o depression, denied S/I and H/I. Patient explained that the doctor wanted her to relax this weekend and not think of financial hardships. She also explained to this law writer about her plan to set up transportation through [employer] for when she discharges from the unit but stated she doesn't want to leave the unit at this time. She also explained her plan to contact law schools to get help with her debts. Patient continues to c/o constipation but asked to not be woke up when PRN available to just receive the MOM in the AM. S/I, H/I: Pt denies: denied A/VH: Pt denies. denied Sleep: asleep at this time ADL's: Independent Group attendance: no Were meds taken: Yes. Any med S/E: None reported or observed Mental Status Exam Appearance: Clean, wearing unit attire, piercing in left cheek. Eye contact: Direct Behavior: isolating to her room Speech: Soft, normal rate and rhythm Mood: Depressed Affect: Flat. Thought process: Linear Thought Content: financial hardships, depression, doesn't want to leave the unit Cognition: A&Ox4 Insight: Poor to Fair Judgment: Poor Interventions PRN's used: none at this time Therapeutic interventions: Therapeutic interventions: 1:1 assessment, therapeutic conversation, encouragement to perform personal hygiene, encouragement to attend groups, encouraged increased p.o. Fluid intake, encouragement to ambulate more to help with motility, medication administration/education/ monitoring, Q 15 min safety checks. Restraints/seclusion/emergency medication: N/A Justification of Continued Inpatient Treatment: Pt. requires interruption of current crisis, medication adjustments, and a safe and supportive environment. Pt presents as depressed and hopeless with complete lack of motivation. Pt requires persistent encouragement for ADLs and to help navigate paperwork regarding financial issues.
[2019-06-08 08:00] VITALS: BP 103/61
[2019-06-08] MEDS ORDERED: QUEtiapine 25mg tablet PO SCH (08:00)
[2019-06-08] MEDS: gabapentin 400mg capsule PO SCH ×3 (08:03→20:08)
[2019-06-08] MEDS: ibuprofen 200mg tablet PO PRN ×2 (08:03→20:30)
[2019-06-08] MEDS: voritoxetine HBr tablet 5 MG TABLET PO SCH (08:03)
[2019-06-08] MEDS: buprenorphine/naloxone 2-0.5mg sublingual tablet SL SCH ×2 (08:03→20:07)
[2019-06-08] MEDS: pantoprazole 40mg Tablet.DR PO SCH (08:03)
[2019-06-08] MEDS: docusate sod 100mg capsule PO SCH ×2 (08:03→20:07)
[2019-06-08] MEDS: magnesium hydroxide 30ml (MOM) UD suspension PO PRN (08:05)
[2019-06-08] MEDS: nicotine 14mg patch - 24hr TD SCH (08:10)
[2019-06-08] MEDS: clonazePAM 0.5mg tablet PO PRN ×2 (08:22→17:32)
[2019-06-08] MEDS: QUEtiapine 25mg tablet PO PRN (08:22)
[2019-06-08] MEDS ORDERED: bisacodyl 10mg suppository rectal RC PRN (11:40)
[2019-06-08] MEDS: QUEtiapine 25mg tablet PO SCH ×3 (13:05→20:08)
--- NOTE | 2019-06-08 15:21 | NUR ---
NURSING PROGRESS REPORT Legal hold: 5250 Client on involuntary status for DTS Report received from nurse with use of SBAR: ANGELA Barrera Why are they here: Pt transferred from [facility] to [facility]. Hx of depression, which has been increasing significantly in the past two months. In March pt started cutting her wrists and thighs. Three days ago, pt attempted suicide by driving car [place]. Pt states trigger for recent events is overwhelming debt. Assessment Went to pt's room after breakfast for assessment and to give her Suboxone. Pt appeared anxious, she began to cry and sob, stated, "I can't breathe." "I feel like I'm going to pass out." Pt's lungs were clear to auscultation, O2 sat was 96% on RA, HR 80, BP 103/61. Provided support, reassured pt that her VS and lung sounds were good, offered prns for anxiety. Administered prn Klonopin 0.5 mg and Seroquel 25 mg at 0825 with good effect. Pt stated, " my body is just all out of whack." Pt c/o constipation today, stated she had a small hard BM this am and she had to push and push. Administered MOM with breakfast. Hospitalist came to see pt today, discussed constipation, he gave order for prn Bisacodyl supp 10 mg CO daily PRN constipation. Offered suppository to pt before lunch, she refused stating that they burn and make her feel sick. Discussed episode of increased anxiety that had occurred earlier. Pt stated, "I just panicked." Administered prn ibuprofen 600 mg with breakfast for back and right ankle pain, encouraged pt to try an ice pack but pt declined. S/I, H/I: Pt denies A/VH: Pt denies Sleep: Slept well per noc shift report, naps periodically throughout the day. ADL's: Independent Group attendance: Yes Were meds taken: Yes. Any med S/E: Pt reported feeling like she was going to pass out this am, may have been anxiety related. Mental Status Exam Appearance: Clean, wearing unit attire. Pt has piercing in left cheek. Hair brushed and well kept. Eye contact: Fair Behavior: irritable, isolative to self Speech: Soft, normal rate and rhythm Mood: depressed, anxious Affect: depressed, anxious Thought process: linear Thought Content: Focused on not feeling well; constipation, feeling "out of whack." Cognition: A&Ox4 Insight: Fair Judgment: Fair Interventions PRN's used: MOM, ibuprofen, Klonopin 0.5, Seroquel 25 mg Therapeutic interventions: 1:1 assessment, active listening, therapeutic conversation, encouragement to attend groups, encouragement to use ice and FWW, medication administration/education/monitoring,a anxiety management, positive reinforcement, Q 15 min safety checks. Restraints/seclusion/emergency medication: N/A Justification of Continued Inpatient Treatment: Pt. requires interruption of current crisis, medication adjustments, and a safe and supportive environment. Pt presents as depressed and hopeless and remains overwhelmed debt and loss of car. Pt is c/o feeling "panic." Pt requires persistent encouragement for ADLs and to help navigate paperwork regarding financial issues to prevent decompensation and readmission.
[2019-06-08] MEDS: cyclobenzaprine 10mg tablet PO PRN (17:32)
--- NOTE | 2019-06-08 17:45 | NUR ---
Pt requested anxiety medication at 1730, as well as Flexeril for her back. Administered Flexeril 5 mg and Klonopin 0.5 mg. Pt stated that she was having increased anxiety because she was thinking about discharge but that she feels that it is time for her to go home. Reassured pt that follow-up care would be set up so she could continue receiving help and support while re-establishing her life. Pt expressed concern about transportation, reminded he that SW was working to get her set up with a way to and from appointments.
[2019-06-08 19:57] VITALS: BP 91/63
--- NOTE | 2019-06-08 22:10 | NUR ---
NURSING PROGRESS REPORT Legal hold: 5250 Client on involuntary status for DTS Report received from nurse with use of SBAR: CHARLES Kulkarni Why are they here: Pt transferred from [facility] to [facility]. Hx of depression, which has been increasing significantly in the past two months. In March pt started cutting her wrists and thighs. Three days ago, pt attempted suicide by [place] car [place]. Pt states trigger for recent events is overwhelming debt. What Happened this shift: Pt lying in bed at the start of the shift and remained there throughout. Pt reports no improvement in her depression since admit, she continues to c/o depressed mood, low energy, anhedonia, denies active S/I but does relate a wish to just , reports appetite is good. Discussed her anxiety attack from this morning and she stated she just starts to think about things, was thinking about how she "really messed up", starts crying and then anxiety ensues. S/I, H/I: passive wish to no longer live A/VH: Pt denies Sleep: sleeping well ADL's: Independent Group attendance: Yes Were meds taken: Yes. Any med S/E: denies Mental Status Exam Appearance: lying in bed, wearing hospital scrubs, grooming appears good Eye contact: Fair Behavior: isolative Speech: Soft, normal rate and rhythm Mood: depressed Affect: blunted Thought process: linear Thought Content: WNL Cognition: A&Ox4 Insight: Fair Judgment: Fair Interventions PRN's used: ibuprofen Therapeutic interventions: 1:1 assessment, active listening, therapeutic conversation, medication administration/education/monitoring,a anxiety management, Q 15 min safety checks. Restraints/seclusion/emergency medication: N/A Justification of Continued Inpatient Treatment: Pt. requires interruption of current crisis, medication adjustments, and a safe and supportive environment. Pt continues to report depression and passive thoughts of suicide at this time.
[2019-06-09 08:00] VITALS: BP 86/60
[2019-06-09] MEDS: pantoprazole 40mg Tablet.DR PO SCH (08:00)
[2019-06-09] MEDS: gabapentin 400mg capsule PO SCH ×3 (08:00→20:05)
[2019-06-09] MEDS: docusate sod 100mg capsule PO SCH ×2 (08:01→20:04)
[2019-06-09] MEDS: voritoxetine HBr tablet 5 MG TABLET PO SCH (08:01)
[2019-06-09] MEDS: buprenorphine/naloxone 2-0.5mg sublingual tablet SL SCH ×2 (08:01→20:05)
[2019-06-09] MEDS: nicotine 14mg patch - 24hr TD SCH (08:05)
[2019-06-09] MEDS: QUEtiapine 25mg tablet PO SCH ×3 (11:58→20:05)
[2019-06-09] MEDS: clonazePAM 0.5mg tablet PO PRN (11:58)
[2019-06-09] MEDS: magnesium hydroxide 30ml (MOM) UD suspension PO PRN (12:21)
--- NOTE | 2019-06-09 18:21 | NUR ---
NURSING PROGRESS REPORT Legal hold: 5250 Client on involuntary status for DTS Report received from nurse with use of SBAR: CHARLES Rubin Why are they here: Pt transferred from [facility] to [facility]. Hx of depression, which has been increasing significantly in the past two months. In March pt started cutting her wrists and thighs. Three days ago, pt attempted suicide by driving car [place]. Pt states trigger for recent events is overwhelming debt. What Happened this shift: Patient observed sleeping at change of shift. She takes her medication prior to breakfast and than joins others in the group room. She is pleasant in demeanor but does not engage socially. She attends morning group and then leaves early due to anxiety. She states that she cannot breath and is very tearful. She states that she has so many things to do, get her license, a car, social security card...etc. She is encouraged to take one thing at a time. She states this is easy to give as advise and begins to cry. Mary administer. Patient c/o constipation and requests MOM, administered. S/I, H/I: passive A/VH: Pt denies Sleep: 7.50 ADL's: Independent Group attendance: Yes, morning Were meds taken: Yes. Any med S/E: none reported, No IMs or tremors observed Mental Status Exam Appearance: lying in bed, wearing hospital scrubs, grooming appears good Eye contact: occasional direct Behavior: isolative, tearful, anxious Speech: Soft, normal rate and rhythm Mood: depressed Affect: congruent to mood Thought process: linear Thought Content: WNL, how she will get the things she needs Cognition: A&Ox4 Insight: Fair Judgment: Fair Interventions PRN's used: VIET pearl Therapeutic interventions: 1:1 assessment, active listening, therapeutic conversation, medication administration/education/monitoring,a anxiety management, Q 15 min safety checks. Restraints/seclusion/emergency medication: N/A Justification of Continued Inpatient Treatment: Pt. requires interruption of current crisis, medication adjustments, and a safe and supportive environment. Pt continues to report depression and passive thoughts of suicide at this time.
[2019-06-09 20:44] VITALS: BP 112/55
--- NOTE | 2019-06-09 21:27 | NUR ---
NURSING PROGRESS REPORT Legal hold: 5250 Client on involuntary status for DTS Report received from nurse with use of SBAR: CHARLES Kulkarni Why are they here: Pt transferred from [facility] to [facility]. Hx of depression, which has been increasing significantly in the past two months. In March pt started cutting her wrists and thighs. Three days ago, pt attempted suicide by [place] car [place]. Pt states trigger for recent events is overwhelming debt. What Happened this shift: Pt isolates to her room the entirety of the shift. She is observed talking with her roomate. Pt reports no improvement in her depression since admit, she continues to c/o depressed mood, low energy, and feeling overwhelmed. PT states " I just wish I was , I wish I would have succeeded when I drove my car [place] the river." S/I, H/I: passive SI A/VH: Pt denies Sleep: sleeping well ADL's: Independent Group attendance: Yes Were meds taken: Yes. Any med S/E: denies Mental Status Exam Appearance: lying in bed, wearing hospital scrubs, grooming appears good Eye contact: Fair Behavior: isolative Speech: Soft, normal rate and rhythm Mood: depressed Affect: blunted Thought process: linear Thought Content: WNL Cognition: A&Ox4 Insight: Fair Judgment: Fair Interventions PRN's used:na Therapeutic interventions: 1:1 assessment, active listening, therapeutic conversation, medication administration/education/monitoring,a anxiety management, Q 15 min safety checks. Restraints/seclusion/emergency medication: N/A Justification of Continued Inpatient Treatment: Pt. requires interruption of current crisis, medication adjustments, and a safe and supportive environment. Pt continues to report depression and passive thoughts of suicide at this time.
[2019-06-10 07:53] VITALS: BP 91/62
[2019-06-10] MEDS: gabapentin 400mg capsule PO SCH ×2 (08:45→12:18)
[2019-06-10] MEDS: voritoxetine HBr tablet 5 MG TABLET PO SCH (08:45)
[2019-06-10] MEDS: buprenorphine/naloxone 2-0.5mg sublingual tablet SL SCH ×2 (08:46→20:49)
[2019-06-10] MEDS: docusate sod 100mg capsule PO SCH ×2 (08:46→20:51)
[2019-06-10] MEDS: pantoprazole 40mg Tablet.DR PO SCH (08:46)
[2019-06-10] MEDS: nicotine 14mg patch - 24hr TD SCH (08:50)
[2019-06-10] MEDS: clonazePAM 0.5mg tablet PO PRN (08:58)
[2019-06-10] MEDS: ibuprofen 200mg tablet PO PRN ×2 (08:58→17:15)
[2019-06-10] MEDS ORDERED: QUEtiapine 25mg tablet PO ONE (09:45)
[2019-06-10] MEDS: QUEtiapine 25mg tablet PO SCH ×2 (12:18→16:53)
--- NOTE | 2019-06-10 16:47 | NUR ---
NURSING PROGRESS REPORT Legal hold: 5250 Client on involuntary status for DTS Report received from nurse with use of SBAR: Marianne SOTO Why are they here: Pt transferred from [facility] to [facility]. Hx of depression, which has been increasing significantly in the past two months. In March pt started cutting her wrists and thighs. Three days ago, pt attempted suicide by [place] car [place]. Pt states trigger for recent events is overwhelming debt. What Happened this shift: Patient observed sleeping at change of shift. She attends breakfast and directly after returns to her room. Report received that patient is c/o SOB and tightness in her chest. Vitals were taken and lung sounds auscultated, all WNL. RN talked with patient and provided education r/t panic attacks and possible triggers (patient was thinking about discharge and things needing to be done). All AM medication administered as well as PRN klonopin and Motrin for foot pain. Prescriber added AM Seroquel 25mg. Patient continues to express hopelessness and feeling of being overwhelmed. She states that her symptoms have not improved since being here and she doesnt want to waste anyones time. Patients 5250 and patient signed voluntary. S/I, H/I: S/I no specific plan specified A/VH: none reported Sleep: 7.75 ADL's: Independent Group attendance: Yes, morning Were meds taken: Yes. Any med S/E: none reported, No IMs or tremors observed Mental Status Exam Appearance: lying in bed, wearing hospital scrubs, grooming appears good Eye contact: occasional direct Behavior: isolative, hopeless, anxious Speech: Soft, normal rate and rhythm Mood: depressed Affect: congruent to mood Thought process: linear Thought Content: WNL, how she will get the things she needs, not feeling better Cognition: A&Ox4 Insight: Fair Judgment: Fair Interventions PRN's used: klonopin Therapeutic interventions: 1:1 assessment, active listening, therapeutic conversation, medication administration/education/monitoring,a anxiety management, Q 15 min safety checks. Restraints/seclusion/emergency medication: N/A Justification of Continued Inpatient Treatment: Pt. requires interruption of current crisis, medication adjustments, and a safe and supportive environment. Pt continues to report depression and passive thoughts of suicide at this time.
[2019-06-10 20:44] VITALS: BP 96/66
[2019-06-10] MEDS: gabapentin 300mg capsule PO SCH (20:46)
[2019-06-10] MEDS: acetaminophen 325mg tablet PO PRN (20:49)
[2019-06-10] MEDS: quetiapine 100mg tablet PO SCH (20:52)
--- NOTE | 2019-06-10 23:14 | NUR ---
NURSING PROGRESS REPORT Legal hold: VOL Client on involuntary status for DTS Report received from nurse with use of SBAR: CHARLES Kulkarni Why are they here: Pt transferred from [facility] to [facility]. Hx of depression, which has been increasing significantly in the past two months. In March pt started cutting her wrists and thighs. Three days ago, pt attempted suicide by [place] car [place]. Pt states trigger for recent events is overwhelming debt. What Happened this shift: Pt walked the halls briefly with her roommate talking then returned to her room for the night. PT states she still feels depressed and overwhelmed and does not think she has really improved since being here. She states that her financial problems have not gone away and she has no idea how she will fix them. She says that all of her IDs and important information has been lost and although she has started the process of applying for more she just feels hopeless. She reported lower back pain, Tylenol was given. S/I, H/I: passive SI "I just wish I was ." A/VH: Pt denies Sleep: sleeping well ADL's: Independent Group attendance: Yes Were meds taken: Yes. Any med S/E: denies Mental Status Exam Appearance: lying in bed, wearing hospital scrubs, grooming appears good Eye contact: Fair Behavior: isolative Speech: Soft, normal rate and rhythm Mood: depressed Affect: blunted Thought process: linear Thought Content: WNL Cognition: A&Ox4 Insight: Fair Judgment: Fair Interventions PRN's used: tylenol Therapeutic interventions: 1:1 assessment, active listening, therapeutic conversation, medication administration/education/monitoring,a anxiety management, Q 15 min safety checks. Restraints/seclusion/emergency medication: N/A Justification of Continued Inpatient Treatment: Pt. requires interruption of current crisis, medication adjustments, and a safe and supportive environment. Pt continues to report depression and passive thoughts of suicide at this time.
[2019-06-11] MEDS: buprenorphine/naloxone 2-0.5mg sublingual tablet SL SCH ×2 (07:19→22:13)
[2019-06-11] MEDS: voritoxetine HBr tablet 5 MG TABLET PO SCH (07:19)
[2019-06-11] MEDS: gabapentin 300mg capsule PO SCH ×3 (07:19→22:13)
[2019-06-11] MEDS: pantoprazole 40mg Tablet.DR PO SCH (07:19)
[2019-06-11] MEDS: docusate sod 100mg capsule PO SCH ×2 (07:19→22:12)
[2019-06-11] MEDS: nicotine 14mg patch - 24hr TD SCH (07:20)
[2019-06-11] MEDS: QUEtiapine 25mg tablet PO PRN (07:33)
[2019-06-11 08:21] VITALS: BP 88/61
--- NOTE | 2019-06-11 12:49 | NUR ---
DISCHARGE PLANNING: Pt plans to use [facility] for her medications - Call Nolberto Thao, he will pay for pt's medications over the phone @ and patient will be transported by support person - Nolberto Thao @ , Mr. Thao requests a phone call 2 hours prior to his picking patient up & he respectfully requests that pt is ready to leave when he arrives. GEOFFREY Dupont Addendum: 06/11/19 at 1656 by Sonam RANDALL Faxed Demand Response Application for pt. put original in pt's chart under physician's referral tab. GEOFFREY Dupont Addendum: 06/11/19 at 1713 by Sonam RANDALL Mr. Thao wanted to be clear that patient will be living alone. She will have some/minimal assistance but that will be all. GEOFFREY Dupont
[2019-06-11] MEDS: ibuprofen 200mg tablet PO PRN (12:54)
[2019-06-11] MEDS: QUEtiapine 25mg tablet PO SCH ×2 (12:54→17:38)
[2019-06-11] MEDS: clonazePAM 0.5mg tablet PO PRN (12:54)
--- NOTE | 2019-06-11 17:33 | NUR ---
NURSING PROGRESS REPORT Legal hold: 5250 Client on involuntary status for DTS Report received from nurse with use of SBAR: Marianne SOTO Why are they here: Pt transferred from [facility] to [facility]. Hx of depression, which has been increasing significantly in the past two months. In March pt started cutting her wrists and thighs. Three days ago, pt attempted suicide by [place] car [place]. Pt states trigger for recent events is overwhelming debt. What Happened this shift: Patient observed sleeping at change of shift. Prior to breakfast medications are administered to patient in attempt to control anxiety. Patient states that she is feeling anxious and requests PRN seroquel 25mg and Motrin for her foot pain. Patient eats breakfast and returns with no symptoms of anxiety. She requests to take a shower and after reports SOB and is tearful. She states I cant do anything without feeling like this. RN provided education r/t anxiety, depression, medications and coping skills. RN administered PRN klonopin. Patient is observed resting comfortable after. S/I, H/I: S/I, no specific plan specified A/VH: none reported Sleep: 4hrs NOC and rested during the day ADL's: Independent Group attendance: no Were meds taken: Yes. Any med S/E: none reported, No IMs or tremors observed Mental Status Exam Appearance: lying in bed, wearing hospital scrubs, grooming appears good Eye contact: direct Behavior: isolative, hopeless, anxious Speech: Soft, normal rate and rhythm Mood: depressed Affect: congruent to mood Thought process: linear Thought Content: WNL, how she will get the things she needs, not feeling better Cognition: A&Ox4 Insight: Fair Judgment: Fair Interventions PRN's used: klonopin, seroquel and Motrin Therapeutic interventions: 1:1 assessment, active listening, therapeutic conversation, medication administration/education/monitoring,a anxiety management, Q 15 min safety checks. Restraints/seclusion/emergency medication: N/A Justification of Continued Inpatient Treatment: Pt. requires interruption of current crisis, medication adjustments, and a safe and supportive environment. Pt continues to report depression and passive thoughts of suicide at this time.
[2019-06-11 20:43] VITALS: BP 93/65
[2019-06-11] MEDS: quetiapine 100mg tablet PO SCH (21:00)
--- NOTE | 2019-06-12 00:31 | NUR ---
NURSING PROGRESS REPORT Legal hold: VOL Client on involuntary status for DTS Report received from nurse with use of SBAR: Ismael RN Why are they here: Pt transferred from [facility] to [facility]. Hx of depression, which has been increasing significantly in the past two months. In March pt started cutting her wrists and thighs. Three days ago, pt attempted suicide by [place] car [place]. Pt states trigger for recent events is overwhelming debt. What Happened this shift: Pt isolates to her room the entirety of the shift. She has a flat affect and wears green scrubs an uncombed hair. She stated to policy writer typist that she felt a "little lightheaded." Her BP was 93/65 HR 65. Fire Hydrant Mechanic did orthostatic vitals on pt. They are as follows: supine: BP: 86/55 HR 67 sitting : BP: 95/57 HR 70 standing : BP: 83/50 HR: 60 standing 2: BP: 85/53 HR: 80 Fire Hydrant Mechanic had pt stay sitting and drink a pitcher of water. Vitals checked 1 hour later were as follows: BP: 90/65 HR 69 PT was scheduled to take 600 mg gabapentin, 100mg Seroquel, and 2 tabs buprenorphine. Physician was called, BPs reported, physician said to hold the Seroquel for tonight. S/I, H/I: passive SI A/VH: Pt denies Sleep: see sleep assessment notation ADL's: Independent Group attendance: Yes Were meds taken: Yes. Any med S/E: denies Mental Status Exam Appearance: lying in bed, wearing hospital scrubs Eye contact: Fair Behavior: isolative Speech: Soft, normal rate and rhythm Mood: depressed Affect: blunted Thought process: linear Thought Content: WNL Cognition: A&Ox4 Insight: Fair Judgment: Fair Interventions PRN's used: NA Therapeutic interventions: 1:1 assessment, active listening, therapeutic conversation, medication administration/education/monitoring,a anxiety management, Q 15 min safety checks. Restraints/seclusion/emergency medication: N/A Justification of Continued Inpatient Treatment: Pt. requires interruption of current crisis, medication adjustments, and a safe and supportive environment. Pt continues to report depression and passive thoughts of suicide at this time.
[2019-06-12] MEDS ORDERED: QUET50TA22 PO (07:27)
[2019-06-12] MEDS ORDERED: QUET100T33 PO (07:27)
[2019-06-12] MEDS ORDERED: VORT5TAB PO (07:27)
[2019-06-12] MEDS ORDERED: CLON0.5T12 PO (07:27)
[2019-06-12] MEDS ORDERED: GABA600T13 PO (07:27)
[2019-06-12] MEDS ORDERED: PANT40TA4 PO (07:27)
[2019-06-12] MEDS ORDERED: BUPR1FIL5 SL (07:27)
[2019-06-12] MEDS ORDERED: NICO-631 TD (07:27)
[2019-06-12] MEDS ORDERED: CYCL-1 PO (07:27)
[2019-06-12 07:51] VITALS: BP 96/64
[2019-06-12] MEDS: docusate sod 100mg capsule PO SCH (08:14)
[2019-06-12] MEDS: voritoxetine HBr tablet 5 MG TABLET PO SCH (08:15)
[2019-06-12] MEDS: clonazePAM 0.5mg tablet PO PRN (08:15)
[2019-06-12] MEDS: nicotine 14mg patch - 24hr TD SCH (08:15)
[2019-06-12] MEDS: pantoprazole 40mg Tablet.DR PO SCH (08:15)
[2019-06-12] MEDS: buprenorphine/naloxone 2-0.5mg sublingual tablet SL SCH (08:16)
[2019-06-12] MEDS: gabapentin 300mg capsule PO SCH (08:16)
[2019-06-12] MEDS: ibuprofen 200mg tablet PO PRN (08:41)
--- NOTE | 2019-06-12 11:30 | NUR ---
NURSING DISCHARGE NOTE The patient was discharged to her home today at 1130. She denies suicidal thoughts. She is anxious about going home and getting her medications. The patient was reassured regarding status of medications. She stated she understood her prescriptions and how to take her meds. Her f/u appts were reviewed. She was picked up by her friend Nolberto and was escorted to the lobby by STUART Woodruff with all instructions, medications and belongings.
== END 2019-06-12 11:30 | disposition home or self-care (01) | DRG 885 ==
LOC: ADULT MH 11:02
PROVIDERS: ADMIT Psychiatry & Neurology Psychiatry; ATTEND Psychiatry & Neurology Psychiatry
DX: F33.2 Major depressive disorder, recurrent severe without psychotic features (principal); R45.851 Suicidal ideations; F11.20 Opioid dependence, uncomplicated; F41.0 Panic disorder [episodic paroxysmal anxiety]; G89.29 Other chronic pain; F41.1 Generalized anxiety disorder; K59.00 Constipation, unspecified; K21.9 Gastro-esophageal reflux disease without esophagitis; F39 Unspecified mood [affective] disorder; M54.9 Dorsalgia, unspecified; R06.4 Hyperventilation; J44.9 Chronic obstructive pulmonary disease, unspecified; M81.0 Age-related osteoporosis without current pathological fracture; Z59.0 Homelessness; Z79.899 Other long term (current) drug therapy; Z98.1 Arthrodesis status; Z80.8 Family history of malignant neoplasm of other organs or systems
CPT/HCPCS: 36415; 70450; 73610; 80048; 80061; 83036; 87081; 90732; 97116; 97161; 97530; Z7610

== ENCOUNTER 2019-07-22 10:02 | Inpatient (IN) | payer MEDICARE, OTHER ==
[~2019-07-22] VITALS: Ht 174 cm; Wt 81.5 kg
[~2019-07-22 10:02] MED LIST changes: -ALPR2TAB PO; +BUPR1FIL5 SL; +CLON0.5T12 PO; +CYCL-1 PO; -DULO60CA65 PO; +GABA600T13 PO; -HYDR-3972 PO; -MELO-102 PO; -METH500T PO; +NICO-631 TD; -ONDA4TAB6 PO; +PANT40TA4 PO; +QUET100T33 PO; +QUET50TA22 PO; -TRAZ300T2 PO; +VORT5TAB PO
[2019-07-22] MEDS ORDERED: mag hydrox/Alum hydrox/simeth 30ml oral suspension PO PRN (10:30)
[2019-07-22] MEDS ORDERED: loperamide 2mg capsule PO PRN (10:30)
[2019-07-22] MEDS ORDERED: acetaminophen 325mg tablet PO PRN (10:30)
[2019-07-22] MEDS ORDERED: LORazepam 1 MG tablet PO PRN (10:30)
[2019-07-22] MEDS ORDERED: QUET25TA PO (11:42)
[2019-07-22] MEDS ORDERED: clonazePAM 0.5mg tablet PO PRN (11:50)
[2019-07-22] MEDS ORDERED: BUPR1FIL5 SL (11:55)
--- NOTE | 2019-07-22 12:30 | NUR ---
Admit note: Pt admitted on [facility] on 5150 for DTS. Pt admitted from [facility] and escorted by transporter, Security and [employer]. PT presents as depressed, hopeless, helpless and suicidal. Pt took intentional overdose of psych meds in suicide attempt. This is third serious suicide attempt this year. Unable to formulate safety plan at this time. Pt cooperative with admit. Pt has history of depression, back surg, shoulder surg, COPD,.
[2019-07-22] MEDS: QUEtiapine 25mg tablet PO SCH ×2 (13:34→21:04)
[2019-07-22] MEDS: gabapentin 300mg capsule PO SCH ×2 (13:35→21:04)
[2019-07-22 19:57] VITALS: BP 113/78
[2019-07-22] MEDS: quetiapine 100mg tablet PO SCH (21:04)
[2019-07-22] MEDS: buprenorphine/naloxone 2-0.5mg sublingual tablet SL SCH (21:04)
[2019-07-22] MEDS: clonazePAM 0.5mg tablet PO SCH (21:04)
--- NOTE | 2019-07-23 03:28 | NUR ---
Progress Note: Patient is up and sitting in the group room at change of shift. Her sister comes for a visit this evening and patient reports it as a "Good" visit. Patient is cooperative for a 1:1 assessment at her bedside. She is cooperative, pleasant and articulate. She reports depression and denies SI,HI, VH, AH. She states quality of life has been difficult since she broke her back and that living with chronic pain has been hard on her. She reports that she went to all groups today, and that her day went well since being on the unit. She was cooperative with all her evening medications and went to bed right after taking them.
[2019-07-23] MEDS ORDERED: nicotine 14mg patch - 24hr TD SCH (08:00)
[2019-07-23 08:12] LABS: CHOL/HDL RATIO 4.4 (0.00-4.99); CHOLESTEROL 157 MG/DL (0-200); HDL CHOLESTEROL 36 MG/DL (35-60); LDL CHOLESTEROL 104 MG/DL (50-100); TRIGLYCERIDES 168 MG/DL (20-135)
[2019-07-23 08:34] VITALS: BP 86/59
[2019-07-23] MEDS: duloxetine 30mg CAPSULE.DR PO SCH (08:37)
[2019-07-23] MEDS: clonazePAM 0.5mg tablet PO SCH ×2 (08:37→20:45)
[2019-07-23] MEDS: gabapentin 300mg capsule PO SCH ×3 (08:37→20:45)
[2019-07-23] MEDS: buprenorphine/naloxone 2-0.5mg sublingual tablet SL SCH ×2 (08:38→20:46)
[2019-07-23] MEDS: QUEtiapine 25mg tablet PO SCH ×3 (08:38→20:45)
[2019-07-23] MEDS ORDERED: FLU VACC QS2019-20 36MOS UP/PF 60 MCG/0.5 ML SYRINGE IMVAC ONE (10:00)
[2019-07-23] MEDS: acetaminophen 325mg tablet PO PRN (13:03)
[2019-07-23] MEDS ORDERED: ipratropium/albuterol 3ml nebule NEB PRN (13:15)
[2019-07-23 13:38] VITALS: BP 89/63
--- NOTE | 2019-07-23 16:32 | NUR ---
Met with Ct to complete psychosocial assessment. See assessment. Alyse Hernández. Addendum: 07/23/19 at 1633 by Alyse Hernández SS Amended: Links added. Addendum: 07/23/19 at 1644 by Alyse Hernández SS Ct was calm and cooperative. She was tearful and hopeless. She expressed concern about returning home. She reported this is her 3rd suicide attempt since March. CJ
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
[2019-07-23 20:33] VITALS: BP 114/74
[2019-07-23] MEDS: quetiapine 100mg tablet PO SCH (20:45)
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
[2019-07-24 08:00] VITALS: BP 91/56
[2019-07-24] MEDS: duloxetine 30mg CAPSULE.DR PO SCH (08:13)
[2019-07-24] MEDS: gabapentin 300mg capsule PO SCH ×3 (08:13→21:15)
[2019-07-24] MEDS: clonazePAM 0.5mg tablet PO SCH ×2 (08:14→21:15)
[2019-07-24] MEDS: buprenorphine/naloxone 2-0.5mg sublingual tablet SL SCH ×2 (08:14→21:15)
[2019-07-24] MEDS: QUEtiapine 25mg tablet PO SCH ×3 (08:14→21:16)
[2019-07-24] MEDS ORDERED: FLU VACC QS2019-20 36MOS UP/PF 60 MCG/0.5 ML SYRINGE IMVAC ONE (10:00)
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
[2019-07-24 21:06] VITALS: BP 95/62
[2019-07-24] MEDS: quetiapine 100mg tablet PO SCH (21:15)
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
[2019-07-25 08:00] VITALS: BP 97/62
[2019-07-25] MEDS: clonazePAM 0.5mg tablet PO SCH ×2 (08:08→20:49)
[2019-07-25] MEDS: QUEtiapine 25mg tablet PO SCH ×3 (08:08→20:50)
[2019-07-25] MEDS: duloxetine 30mg CAPSULE.DR PO SCH (08:09)
[2019-07-25] MEDS: buprenorphine/naloxone 2-0.5mg sublingual tablet SL SCH ×2 (08:09→20:50)
[2019-07-25] MEDS: gabapentin 300mg capsule PO SCH ×3 (08:09→20:52)
[2019-07-25] MEDS: acetaminophen 325mg tablet PO PRN (12:45)
--- NOTE | 2019-07-25 13:08 | NUR ---
Called [facility] to schedule Ct follow up appt. She is scheduled to see Dr Moran on 08/07/19 at 9:30 am. ZOLTAN Zhang Lic # [id number]
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
[2019-07-25 19:00] VITALS: BP 112/69
[2019-07-25] MEDS: quetiapine 100mg tablet PO SCH (20:50)
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
[2019-07-26 07:30] VITALS: BP 96/49
[2019-07-26 08:00] VITALS: BP 97/49
[2019-07-26] MEDS: gabapentin 300mg capsule PO SCH ×3 (08:38→20:53)
[2019-07-26] MEDS: buprenorphine/naloxone 2-0.5mg sublingual tablet SL SCH ×2 (08:39→20:52)
[2019-07-26] MEDS: QUEtiapine 25mg tablet PO SCH ×3 (08:39→20:53)
[2019-07-26] MEDS: clonazePAM 0.5mg tablet PO SCH ×2 (08:39→20:53)
[2019-07-26] MEDS: duloxetine 30mg CAPSULE.DR PO SCH (08:39)
--- NOTE | 2019-07-26 08:48 | NUR ---
Initial: Pt admit w/ depression PO 75-100% avg regular meals meeting needs. LBM 07/23. TG 168 on admit; YVROSE d/w RN regarding anti-hyperlipidemic per MD approval. No nutrition concerns at this time. Will continue to monitor. Rec: 1. continue regular diet 2. TG 168; consider anti-hyperlipidemic per MD approval 3. routine bowel care Addendum: 07/26/19 at [address] Amended: Links added.
[2019-07-26] MEDS: magnesium hydroxide 30ml (MOM) UD suspension PO PRN ×2 (09:02→21:11)
[2019-07-26] MEDS ORDERED: docusate sod 100mg capsule PO PRN (09:45)
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
[2019-07-26 19:00] VITALS: BP 87/51
[2019-07-26] MEDS: quetiapine 100mg tablet PO SCH (20:53)
[2019-07-26] MEDS: hydrOXYzine 25 MG tablet PO PRN (21:14)
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
[2019-07-27] MEDS: duloxetine 30mg CAPSULE.DR PO SCH (07:59)
[2019-07-27 08:00] VITALS: BP 82/60
[2019-07-27] MEDS: QUEtiapine 25mg tablet PO SCH ×3 (08:00→20:41)
[2019-07-27] MEDS: buprenorphine/naloxone 2-0.5mg sublingual tablet SL SCH ×2 (08:00→20:40)
[2019-07-27] MEDS: gabapentin 300mg capsule PO SCH ×3 (08:00→20:41)
[2019-07-27] MEDS: clonazePAM 0.5mg tablet PO SCH ×2 (08:00→20:40)
[2019-07-27] MEDS: acetaminophen 325mg tablet PO PRN (13:55)
[2019-07-27] MEDS ORDERED: magnesium citrate 296ml oral solution PO ONE (15:00)
--- NOTE | 2019-07-27 16:02 | NUR ---
Nursing Progress Note: Alina Legal hold: Voluntary Client on involuntary status for DTS Report received from nurse with use of Monica MENDOZA CRN Why are they here: Pt overdosed on 40 tabs of Klonopin and 25 tabs of Seroquel 100 mg in a suicide attempt. She did not tell her sister what she did until the next day when she was taken to [facility]. Pt has a Hx of 2 other recent serious suicide attempts. She attempted suicide the first time by cutting her throat and her thigh and the second time by driving her car into the [place] [email or web address]. Assessment What has happened this shift: Patient laying in bed awake at the beginning of shift. Patient pleasant and cooperative with all care. Patient c/o constipation, MOM given yesterday without results. Appears brighter today, states feels slightly better. C/O increasing discomfort related to constipation, recieved order for Mag citrate. Was out of room more today, observed coloring pages and interacting minimally with others, Rates depression 7/10 and still states she wishes she had been successful in her suicide attempt. S/I, H/I: Denies A/VH: Denies Sleep: 8.5 ADL's: Independent Group attendance: No Were meds taken: Yes Any med S/E: None reported, none observed. Mental Status Exam Appearance: Clean, well kept, dressed in street clothes, dermal piercing in left cheek Eye contact: Direct Behavior: Isolative, cooperative Speech: Normal volume, rate and rhythm Mood: Depressed Affect: Congruent to mood Thought process: Linear Thought Content: difficulties in life Cognition: A/O X 4 Insight: Fair Judgment: Poor Interventions PRN's used: Atarax and Tylenol, effective and MOM, no result at this time Therapeutic interventions: 1:1 assessment, active listening, therapeutic conversation, medication administration/education/monitoring, BP monitoring, Incentive spirometry teaching, encouragement to attend groups, Q 15 min safety checks. Restraints/seclusion/emergency medication: None Justification of Continued Inpatient Treatment: Interrupt current crisis, maintain safety of patient. Continued therapeutic support and medication management needed to provide stabilization, prevent decompensation, decreasing risk to patient and readmittance. Addendum: 07/27/19 at 1758 by Caryn Rocha RN While waiting for dinner, patient was in room and had started journaling. She discussed how her poor decisions caused her to be in her current situation. She made a deliberate note in her journal that she wanted to focus on positive actions moving forward and not dwell on her past poor decisions. Appeared more animated than previously observed.
[2019-07-27] MEDS: hydrOXYzine 25 MG tablet PO PRN (16:45)
[2019-07-27 19:57] VITALS: BP 104/64
[2019-07-27] MEDS: quetiapine 100mg tablet PO SCH (20:41)
--- NOTE | 2019-07-27 22:38 | NUR ---
Nursing Progress Note: Legal hold: Voluntary Client on involuntary status for DTS Report received from nurse with use of Caryn MENDOZA RN Why are they here: Pt overdosed on 40 tabs of Klonopin and 25 tabs of Seroquel 100 mg in a suicide attempt. She did not tell her sister what she did until the next day when she was taken to [facility]. Pt has a Hx of 2 other recent serious suicide attempts. She attempted suicide the first time by cutting her throat and her thigh and the second time by driving her car [place] the [place]. Assessment What has happened this shift: The patient was found in her bed for 1:1. She reports that she's been depressed and lonely for months. She has no family or children, only an ex- that she still talks to. She states that she lives in a mobile home that needs work and [place] her [place] the river to [place], but found the river is not that deep. "Now, I don't even have a car." She says she was able to borrow some money from her sister, but will be in debt to her for a long time. The patient says the Mag Citrate she took today did not make her have a BM. She is cooperative with care, but has minimal contact with other clients. She stayed isolated to her room all night except for snack time. She took her HS meds then went to sleep. S/I, H/I: Passive SI, Denies HI A/VH: Denies Sleep: See sleep assessment ADL's: Independent Group attendance: No groups this shift Were meds taken: Yes Any med S/E: None stated or observed Mental Status Exam Appearance: Clean, well kept, dressed in street clothes, dermal piercing in left cheek Eye contact: Direct Behavior: Isolative, cooperative Speech: Normal volume, rate and rhythm Mood: Depressed Affect: Flat Thought process: Linear Thought Content: She's focused on how hard life is. Cognition: A/O X 4 Insight: Fair Judgment: Poor Interventions PRN's used: None Therapeutic interventions: 1:1 assessment, active listening, therapeutic conversation, medication administration/education/monitoring, BP monitoring, Incentive spirometry teaching, encouragement to attend groups, Q 15 min safety checks. Restraints/seclusion/emergency medication: None Justification of Continued Inpatient Treatment: Interrupt current crisis, maintain safety of patient. Continued therapeutic support and medication management needed to provide stabilization, prevent decompensation, decreasing risk to patient and readmittance.
[2019-07-28] MEDS: gabapentin 300mg capsule PO SCH ×3 (07:49→20:19)
[2019-07-28] MEDS: duloxetine 30mg CAPSULE.DR PO SCH (07:49)
[2019-07-28] MEDS: clonazePAM 0.5mg tablet PO SCH ×2 (07:50→19:22)
[2019-07-28] MEDS: QUEtiapine 25mg tablet PO SCH ×3 (07:50→20:19)
[2019-07-28] MEDS: buprenorphine/naloxone 2-0.5mg sublingual tablet SL SCH ×2 (07:50→19:22)
[2019-07-28 08:00] VITALS: BP 97/63
[2019-07-28] MEDS: acetaminophen 325mg tablet PO PRN (12:57)
--- NOTE | 2019-07-28 17:18 | NUR ---
Nursing Progress Note: Alina Legal hold: Voluntary Client on involuntary status for DTS Report received from nurse with use of Caryn MENDOZA CRN Why are they here: Pt overdosed on 40 tabs of Klonopin and 25 tabs of Seroquel 100 mg in a suicide attempt. She did not tell her sister what she did until the next day when she was taken to [facility]. Pt has a Hx of 2 other recent serious suicide attempts. She attempted suicide the first time by cutting her throat and her thigh and the second time by driving her car into the [employer]. Assessment What has happened this shift: Received pt sitting up in bed. Pt was able to discuss why she is here and had a lot of self judgement and shame. Pt stated she wishes her suicide attempts had been successful and continues to endorse S.I. Pt became tearful when asked to write out two things that God created her for or two ways God sees her and if what she comes up with is negative, to write down the opposite. Pt did attend am group, but slept through afternoon group. By afternoon, pt had not yet been able to complete above assignment and again became tearful when asked about it and stated "it is hard to see myself as forgiven" Pt responded well to encouragement. S/I, H/I: Denies A/VH: Denies Sleep: afternoon nap ADL's: Independent Group attendance: No Were meds taken: Yes Any med S/E: None reported, none observed. Mental Status Exam Appearance: Clean, well kept, dressed in street clothes, dermal piercing in left cheek Eye contact: Direct Behavior: Isolative, cooperative Speech: Normal volume, rate and rhythm Mood: Depressed Affect: Congruent to mood Thought process: Linear Thought Content: difficulties in life Cognition: A/O X 4 Insight: Fair Judgment: Poor Interventions PRN's used: Atarax and Tylenol, effective and MOM, no result at this time Therapeutic interventions: 1:1 assessment, active listening, therapeutic conversation, medication administration/education/monitoring, BP monitoring, Incentive spirometry teaching, encouragement to attend groups, Q 15 min safety checks. Restraints/seclusion/emergency medication: None Justification of Continued Inpatient Treatment: Interrupt current crisis, maintain safety of patient. Continued therapeutic support and medication management needed to provide stabilization, prevent decompensation, decreasing risk to patient and readmittance.
[2019-07-28 19:44] VITALS: BP 98/60
[2019-07-28] MEDS: quetiapine 100mg tablet PO SCH (20:19)
[2019-07-28] MEDS: cyclobenzaprine 10mg tablet PO PRN (20:24)
--- NOTE | 2019-07-28 23:46 | NUR ---
Nursing Progress Note: Alina Legal hold: Voluntary Client on involuntary status for DTS Report received from nurse with use of Caryn MENDOZA CRN Why are they here: Pt overdosed on 40 tabs of Klonopin and 25 tabs of Seroquel 100 mg in a suicide attempt. She did not tell her sister what she did until the next day when she was taken to [facility]. Pt has a Hx of 2 other recent serious suicide attempts. She attempted suicide the first time by cutting her throat and her thigh and the second time by driving her car into the [place] [employer]. Assessment What has happened this shift: Pt was in the [facility] at change of shift asking for meds, reporting pain and anxiety. Pt was given scheduled medications w/good effect. Pt denies s/i, reports feeling overwhelmed in her living situation due to finances, relationship problems w/her SO and she doesnt like living in the [employer] home. Pt isolated to her room for duration of shift. Reports feeling depressed, is tearful during conversation. Pt was encouraged to use incentive spirometer which she did. S/I, H/I: Denies A/VH: Denies Sleep: afternoon nap ADL's: Independent Group attendance: No Were meds taken: Yes Any med S/E: None reported, none observed. Mental Status Exam Appearance: Clean, well kept, dressed in street clothes, dermal piercing in left cheek Eye contact: Direct Behavior: Isolative, cooperative Speech: Normal volume, rate and rhythm Mood: Depressed Affect: Congruent to mood Thought process: Linear Thought Content: difficulties in life Cognition: A/O X 4 Insight: Fair Judgment: Poor Interventions PRN's used: Flexeril for leg and foot pain Therapeutic interventions: 1:1 assessment, active listening, therapeutic conversation, medication administration/education/monitoring, BP monitoring, Incentive spirometry teaching, encouragement to attend groups, Q 15 min safety checks. Restraints/seclusion/emergency medication: None Justification of Continued Inpatient Treatment: Interrupt current crisis, maintain safety of patient. Continued therapeutic support and medication management needed to provide stabilization, prevent decompensation, decreasing risk to patient and readmittance.
[2019-07-29] MEDS: QUEtiapine 25mg tablet PO SCH ×3 (07:26→20:10)
[2019-07-29] MEDS: gabapentin 300mg capsule PO SCH ×3 (07:28→20:11)
[2019-07-29] MEDS: duloxetine 30mg CAPSULE.DR PO SCH (07:28)
[2019-07-29] MEDS: clonazePAM 0.5mg tablet PO SCH ×2 (07:29→20:11)
[2019-07-29] MEDS: buprenorphine/naloxone 2-0.5mg sublingual tablet SL SCH ×2 (07:30→20:11)
[2019-07-29 08:00] VITALS: BP 104/63
[2019-07-29] MEDS: hydrOXYzine 25 MG tablet PO PRN (16:22)
[2019-07-29] MEDS: cyclobenzaprine 10mg tablet PO PRN (16:27)
--- NOTE | 2019-07-29 17:50 | NUR ---
Nursing Progress Note: Alina Legal hold: Voluntary Client on involuntary status for DTS Report received from nurse with use of Ivanna MENDOZA CRN Why are they here: Pt overdosed on 40 tabs of Klonopin and 25 tabs of Seroquel 100 mg in a suicide attempt. She did not tell her sister what she did until the next day when she was taken to [facility]. Pt has a Hx of 2 other recent serious suicide attempts. She attempted suicide the first time by cutting her throat and her thigh and the second time by driving her car into the [facility]. Assessment What has happened this shift: Alina did write down the beginnings of an identity statement and when reading to RN, became tearful. Later in the day, during process with RN, pt affect depressed and relayed hopelessness and victim mentality. Pt continues to endorse S.I., but did request prayer. Pt did not seem changed immediately by the prayer. Pt did partially attend group today and up for all meals. S/I, H/I: Denies A/VH: Denies Sleep: afternoon nap ADL's: Independent Group attendance: No Were meds taken: Yes Any med S/E: None reported, none observed. Mental Status Exam Appearance: Clean, well kept, dressed in street clothes, dermal piercing in left cheek Eye contact: Direct Behavior: Isolative, cooperative Speech: Normal volume, rate and rhythm Mood: Depressed Affect: Congruent to mood Thought process: Linear Thought Content: difficulties in life Cognition: A/O X 4 Insight: Fair Judgment: Poor Interventions PRN's used: Atarax and Tylenol, effective and MOM, no result at this time Therapeutic interventions: 1:1 assessment, active listening, therapeutic conversation, medication administration/education/monitoring, BP monitoring, Incentive spirometry teaching, encouragement to attend groups, Q 15 min safety checks. Restraints/seclusion/emergency medication: None Justification of Continued Inpatient Treatment: Interrupt current crisis, maintain safety of patient. Continued therapeutic support and medication management needed to provide stabilization, prevent decompensation, decreasing risk to patient and readmittance.
[2019-07-29] MEDS: acetaminophen 325mg tablet PO PRN (19:17)
[2019-07-29 19:35] VITALS: BP 93/53
[2019-07-29] MEDS: quetiapine 100mg tablet PO SCH (20:10)
--- NOTE | 2019-07-30 00:55 | NUR ---
Nursing Progress Note: Legal hold: Voluntary Client on involuntary status for DTS Report received from nurse with use of Ismael MENDOZA CRN Why are they here: Pt overdosed on 40 tabs of Klonopin and 25 tabs of Seroquel 100 mg in a suicide attempt. She did not tell her sister what she did until the next day when she was taken to [facility]. Pt has a Hx of 2 other recent serious suicide attempts. She attempted suicide the first time by cutting her throat and her thigh and the second time by driving her car into the [place] [email or web address]. Assessment What has happened this shift: Alina was lying in bed at change of shift. She reports feeling depressed and when asked if she feels suicidal, replied, "I'm not sure." Pt reported pain of 7/10 in her right heel and was given tylenol 650 mg. She slept most of shift except to get up for snack and HS meds. S/I, H/I: "I'm not sure" A/VH: Denies Sleep: asleep now ADL's: Independent Group attendance: snack Were meds taken: Yes Any med S/E: None reported, none observed. Mental Status Exam Appearance: Clean, well kept, dressed in street clothes, dermal piercing in left cheek Eye contact: Direct Behavior: Isolative, cooperative Speech: Normal volume, rate and rhythm Mood: Depressed Affect: Congruent to mood Thought process: Linear Thought Content: difficulties in life Cognition: A/O X 4 Insight: Fair Judgment: Poor Interventions PRN's used: Tylenol Therapeutic interventions: 1:1 assessment, active listening, therapeutic conversation, medication administration/education/monitoring, BP monitoring, Incentive spirometry teaching, encouragement to attend groups, Q 15 min safety checks. Restraints/seclusion/emergency medication: None Justification of Continued Inpatient Treatment: Interrupt current crisis, maintain safety of patient. Continued therapeutic support and medication management needed to provide stabilization, prevent decompensation, decreasing risk to patient and readmittance.
[2019-07-30] MEDS: buprenorphine/naloxone 2-0.5mg sublingual tablet SL SCH ×2 (07:26→20:03)
[2019-07-30] MEDS: QUEtiapine 25mg tablet PO SCH ×3 (07:27→20:02)
[2019-07-30] MEDS: gabapentin 300mg capsule PO SCH ×3 (07:27→20:02)
[2019-07-30] MEDS: duloxetine 30mg CAPSULE.DR PO SCH (07:27)
[2019-07-30] MEDS: clonazePAM 0.5mg tablet PO SCH ×2 (07:27→20:02)
[2019-07-30 08:33] VITALS: BP 86/50
[2019-07-30] MEDS: hydrOXYzine 25 MG tablet PO PRN (12:53)
--- NOTE | 2019-07-30 17:59 | NUR ---
Nursing Progress Note: Legal hold: Voluntary Client on involuntary status for DTS Report received from nurse with use of Ivanna MENDOZA CRN Why are they here: Pt overdosed on 40 tabs of Klonopin and 25 tabs of Seroquel 100 mg in a suicide attempt. She did not tell her sister what she did until the next day when she was taken to [facility]. Pt has a Hx of 2 other recent serious suicide attempts. She attempted suicide the first time by cutting her throat and her thigh and the second time by driving her car into the [facility]. Assessment What has happened this shift: Patient is observed sleeping at change of shift. She wakes and takes her morning medications without issue. Patient states that she slept well last night. Her affect is bright during conversation, she smiles often. She eats her breakfast, attends group and gets exercise by walking the halls for 15 minutes. She is conversational and appears to be feeling better. When asked she states she states that she is still feeling depressed and hopeless regarding going home. She does not have a car and this makes it difficult for her to get around. Her usual support systems are busy with ill loved ones and do not have time for her. S/I, H/I: doesnt clearly state yes or no A/VH: Denies Sleep: 10hrs NOC ADL's: Independent Group attendance: yes Were meds taken: Yes Any med S/E: None reported, none observed. Mental Status Exam Appearance: Clean, well kept Eye contact: Direct Behavior: cooperative, friendly Speech: Normal volume, rate and rhythm Mood: Depressed Affect: Congruent to mood Thought process: Linear Thought Content: difficulties in life Cognition: A/O X 4 Insight: Fair Judgment: Poor Interventions PRN's used: Maalox Therapeutic interventions: 1:1 assessment, active listening, therapeutic conversation, medication administration/education/monitoring, BP monitoring, Incentive spirometry teaching, encouragement to attend groups, Q 15 min safety checks. Restraints/seclusion/emergency medication: None Justification of Continued Inpatient Treatment: Interrupt current crisis, maintain safety of patient. Continued therapeutic support and medication management needed to provide stabilization, prevent decompensation, decreasing risk to patient and readmittance.
[2019-07-30] MEDS: quetiapine 100mg tablet PO SCH (20:02)
[2019-07-30 20:50] VITALS: BP 99/56
--- NOTE | 2019-07-31 01:52 | NUR ---
Nursing Progress Note: Legal hold: Voluntary Client on involuntary status for DTS Report received from nurse with use of SBAR: Ismael RN Why are they here: Pt overdosed on 40 tabs of Klonopin and 25 tabs of Seroquel 100 mg in a suicide attempt. She did not tell her sister what she did until the next day when she was taken to [facility]. Pt has a Hx of 2 other recent serious suicide attempts. She attempted suicide the first time by cutting her throat and her thigh and the second time by driving her car into the [facility]. Assessment What has happened this shift: The patient was seen for the evening assessment as she was isolating in the dark in her room. She stated that her energy level was low. She was resistive to being interviewed initially and was mildly irritable. Her thoughts are negative and is hopeless, helpless. She stated that she does not feel she is getting better here and she doesn't feel she is being helped. Did not want to answer if she was suicidal and stated she was annoyed by being asked about it during the day. She however admits to still having suicidal thoughts. She complains of back pain. She denies side effects to medications. She is complaining of difficulty voiding and that was passed on to the discharge specialist to pass in shift report and written in the SBAR for further follow up. S/I, H/I: Reports Suicidal thoughts but did not elaborate. No verbalized thoughts to harm others. A/VH: Denies Sleep: ADL's: Independent Group attendance: Were meds taken: Yes Any med S/E: None reported, none observed. Mental Status Exam Appearance: Clean, well kept Eye contact: Direct Behavior: Isolative to her room. Speech: Normal volume, rate and rhythm Mood: Depressed Affect: Congruent to mood Thought process: Linear, logical Thought Content: Negative thoughts Cognition: A/O X 4 Insight: Fair Judgment: Poor Interventions PRN's used: None Therapeutic interventions: 1:1 assessment, active listening, therapeutic conversation, medication administration/education/monitoring, BP monitoring, Incentive spirometry teaching, encouragement to attend groups, Q 15 min safety checks. Restraints/seclusion/emergency medication: None Justification of Continued Inpatient Treatment: Interrupt current crisis, maintain safety of patient. Continued therapeutic support and medication management needed to provide stabilization, prevent decompensation, decreasing risk to patient and readmittance.
[2019-07-31] MEDS: buprenorphine/naloxone 2-0.5mg sublingual tablet SL SCH ×2 (07:43→20:10)
[2019-07-31] MEDS: QUEtiapine 25mg tablet PO SCH ×3 (07:43→20:09)
[2019-07-31] MEDS: clonazePAM 0.5mg tablet PO SCH ×2 (07:43→20:10)
[2019-07-31] MEDS: duloxetine 30mg CAPSULE.DR PO SCH (07:43)
[2019-07-31] MEDS: gabapentin 300mg capsule PO SCH ×3 (07:43→20:09)
[2019-07-31] MEDS: acetaminophen 325mg tablet PO PRN ×3 (07:49→19:16)
[2019-07-31] MEDS: cyclobenzaprine 10mg tablet PO PRN (07:49)
[2019-07-31 08:03] VITALS: BP 108/70
[2019-07-31] MEDS: hydrOXYzine 25 MG tablet PO PRN (12:54)
--- NOTE | 2019-07-31 14:59 | NUR ---
Met with Ct to check in and discuss safety planning. Ct had filled out a safety plan and identified people she can call if she feels suicidal in the future. She reported she feels like she is safe to return home and would like to do so. Passed on this information to ZOLTAN Rivera Lice# [id number]
--- NOTE | 2019-07-31 15:59 | NUR ---
I have reviewed and agree with all medications administered and interventions performed by [employer] DEVELOPER Student Mike Garcia.
--- NOTE | 2019-07-31 16:10 | NUR ---
NURSING PROGRESS NOTE Legal hold: Voluntary Client on involuntary status for DTS Report received from nurse with use of SBAR: Ivanna RN Why are they here: Pt overdosed on 40 tabs of Klonopin and 25 tabs of Seroquel 100 mg in a suicide attempt. She did not tell her sister what she did until the next day when she was taken to [facility]. Pt has a Hx of 2 other recent serious suicide attempts. She attempted suicide the first time by cutting her throat and her thigh and the second time by driving her car into the [facility]. Assessment What has happened this shift: The patient was asleep at change of shift. She was up for breakfast and requested her medications. Walking in [facility] with walker and c/o right ankle pain. PT came to eval patient and received an ankle brace. Per Dr. Moran the patient is working on a safety plan and identifying positive things in her life. She is working on and doing a lot of writing today in her room and in group. She is depressed but a bit brighter affect at times. Does not want to talk about suicidal thoughts. Attends all groups and is eating well. S/I, H/I: Did not want to talk about A/VH: No signs Sleep: Napped ADL's: Independent Group attendance:yes x2 Were meds taken: Yes Any med S/E: None reported, none observed. Mental Status Exam Appearance: Clean, well kept Eye contact: Direct Behavior: Mostly cooperative, calm Speech: Normal volume, rate and rhythm Mood: Depressed Affect: Congruent to mood Thought process: Linear, logical Thought Content: Working on safety plan Cognition: A/O X 4 Insight: Fair Judgment: Fair Interventions PRN's used: Tylenol, Flexeril, Atarax Therapeutic interventions: 1:1 assessment, active listening, therapeutic conversation, medication administration/education/monitoring, BP monitoring, Incentive spirometry teaching, encouragement to attend groups, Q 15 min safety checks. Restraints/seclusion/emergency medication: None Justification of Continued Inpatient Treatment: Interrupt current crisis, maintain safety of patient. Continued therapeutic support and medication management needed to provide stabilization, prevent decompensation, decreasing risk to patient and readmittance.
[2019-07-31 20:00] VITALS: BP 120/69
[2019-07-31] MEDS: quetiapine 100mg tablet PO SCH (20:09)
[2019-07-31] MEDS: magnesium hydroxide 30ml (MOM) UD suspension PO PRN (20:10)
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
[2019-08-01] MEDS: hydrOXYzine 25 MG tablet PO PRN ×2 (01:51→14:30)
[2019-08-01] MEDS: acetaminophen 325mg tablet PO PRN ×4 (01:54→20:46)
[2019-08-01] MEDS: gabapentin 300mg capsule PO SCH ×3 (07:23→20:14)
[2019-08-01] MEDS: QUEtiapine 25mg tablet PO SCH ×3 (07:24→20:14)
[2019-08-01] MEDS: clonazePAM 0.5mg tablet PO SCH ×2 (07:24→20:15)
[2019-08-01] MEDS: buprenorphine/naloxone 2-0.5mg sublingual tablet SL SCH ×2 (07:24→20:15)
[2019-08-01] MEDS: duloxetine 30mg CAPSULE.DR PO SCH (07:24)
[2019-08-01 08:09] VITALS: BP 101/46
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
[2019-08-01] MEDS: cyclobenzaprine 10mg tablet PO PRN (17:45)
[2019-08-01 19:00] VITALS: BP 104/49
[2019-08-01] MEDS: quetiapine 100mg tablet PO SCH (20:14)
[2019-08-01 20:40] VITALS: BP 98/76
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
[2019-08-02] MEDS: QUEtiapine 25mg tablet PO SCH ×3 (07:39→20:40)
[2019-08-02] MEDS: duloxetine 30mg CAPSULE.DR PO SCH (07:40)
[2019-08-02] MEDS: clonazePAM 0.5mg tablet PO SCH ×2 (07:40→20:41)
[2019-08-02] MEDS: naproxen sodium 220mg tablet PO SCH ×2 (07:40→20:40)
[2019-08-02] MEDS: buprenorphine/naloxone 2-0.5mg sublingual tablet SL SCH ×2 (07:40→20:41)
[2019-08-02] MEDS: gabapentin 300mg capsule PO SCH ×3 (07:40→20:40)
[2019-08-02 07:52] VITALS: BP 110/70
[2019-08-02] MEDS: hydrOXYzine 25 MG tablet PO PRN (12:59)
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
[2019-08-02 19:00] VITALS: BP 114/48
[2019-08-02] MEDS: quetiapine 100mg tablet PO SCH (20:40)
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
[2019-08-03] MEDS: QUEtiapine 25mg tablet PO SCH ×3 (07:25→20:34)
[2019-08-03] MEDS: gabapentin 300mg capsule PO SCH ×3 (07:25→20:34)
[2019-08-03] MEDS: naproxen sodium 220mg tablet PO SCH ×2 (07:25→20:34)
[2019-08-03] MEDS: duloxetine 30mg CAPSULE.DR PO SCH (07:25)
[2019-08-03] MEDS: clonazePAM 0.5mg tablet PO SCH ×2 (07:26→20:34)
[2019-08-03] MEDS: buprenorphine/naloxone 2-0.5mg sublingual tablet SL SCH ×2 (07:26→20:34)
[2019-08-03 07:55] LABS: ALANINE AMINOTRANSFERASE 17 U/L (12-78); ALBUMIN 2.6 G/DL (3.4-5.0); ALBUMIN/GLOBULIN RATIO 0.8 (1.1-1.5); ALKALINE PHOSPHATASE 82 IU/L (46-116); ANION GAP 3 (8-16); ASPARTATE AMINO TRANSFERASE 16 U/L (10-37); BILIRUBIN,TOTAL 0.2 MG/DL (0.1-1.0); BLOOD UREA NITROGEN 13 MG/DL (7-18); BUN/CREATININE RATIO 18.6 (6.6-38.0); CALCIUM 8.7 MG/DL (8.5-10.1); CHLORIDE 107 MMOL/L (99-107); GLUCOSE 97 MG/DL (70-104); POTASSIUM 4.2 MMOL/L (3.5-5.1); SODIUM 143 MMOL/L (135-145); TOTAL CARBON DIOXIDE 32.6 MMOL/L (24-32); TOTAL PROTEIN 5.7 G/DL (6.4-8.2); eGFR 86 ML/MIN
[2019-08-03 08:00] VITALS: BP 91/43
--- NOTE | 2019-08-03 10:31 | NUR ---
reassessment: Pt PO 75-100% avg meals though continues to fluctuate. LBM 08/01. +10kg wt increase past week likely error. YVROSE d/w RN regarding anti-hyperlipidemic per MD approval given TG 168 on admit. Will continue to monitor. Rec: 1. continue regular diet 2. TG 168; consider anti-hyperlipidemic per MD approval 3. routine bowel care Addendum: 08/03/19 at [address] Amended: Links added.
[2019-08-03] MEDS: hydrOXYzine 25 MG tablet PO PRN (15:21)
[2019-08-03] MEDS: acetaminophen 325mg tablet PO PRN (15:32)
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
[2019-08-03 19:46] VITALS: BP 90/53
[2019-08-03] MEDS: quetiapine 100mg tablet PO SCH (20:34)
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
[2019-08-04] MEDS: QUEtiapine 25mg tablet PO SCH ×3 (07:45→20:39)
[2019-08-04] MEDS: duloxetine 30mg CAPSULE.DR PO SCH (07:45)
[2019-08-04] MEDS: gabapentin 300mg capsule PO SCH ×3 (07:46→20:39)
[2019-08-04] MEDS: naproxen sodium 220mg tablet PO SCH ×2 (07:48→19:29)
[2019-08-04] MEDS: clonazePAM 0.5mg tablet PO SCH ×2 (07:48→19:30)
[2019-08-04] MEDS: buprenorphine/naloxone 2-0.5mg sublingual tablet SL SCH ×2 (07:48→19:30)
[2019-08-04 08:00] VITALS: BP 89/63
[2019-08-04] MEDS ORDERED: cyclobenzaprine 10mg tablet PO PRN (12:00)
[2019-08-04] MEDS: hydrOXYzine 25 MG tablet PO PRN ×2 (12:02→19:30)
[2019-08-04 19:58] VITALS: BP 110/57
[2019-08-04] MEDS: quetiapine 100mg tablet PO SCH (20:39)
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
[2019-08-05] MEDS ORDERED: QUET25TA34 PO (07:43)
[2019-08-05] MEDS ORDERED: DOCU100C40 PO (07:43)
[2019-08-05] MEDS ORDERED: CLON0.5T12 PO (07:43)
[2019-08-05] MEDS ORDERED: DULO60CA65 PO (07:43)
[2019-08-05] MEDS ORDERED: DULO30CA52 PO (07:43)
[2019-08-05] MEDS ORDERED: QUET100T33 PO (07:43)
[2019-08-05] MEDS: clonazePAM 0.5mg tablet PO SCH (07:50)
[2019-08-05] MEDS: QUEtiapine 25mg tablet PO SCH (07:51)
[2019-08-05] MEDS: gabapentin 300mg capsule PO SCH (07:51)
[2019-08-05] MEDS: naproxen sodium 220mg tablet PO SCH (07:51)
[2019-08-05] MEDS: duloxetine 30mg CAPSULE.DR PO SCH (07:52)
[2019-08-05] MEDS: buprenorphine/naloxone 2-0.5mg sublingual tablet SL SCH (07:53)
[2019-08-05] MEDS: acetaminophen 325mg tablet PO PRN (09:49)
[2019-08-05] MEDS: hydrOXYzine 25 MG tablet PO PRN (09:49)
--- NOTE | 2019-08-05 10:35 | NUR ---
Pt. discharged to home. Pt. picked up by friend Nolberto who drove pt. to her home. F/U plan discussed with pt. medications discussed with pt, pt. verbalizes understanding. Pt. given scripts for all home medications. Pt. denies SI/HI, A/V H. Pt. in no apparent psychological or emotional distress. Pt. received all valuables. Pt. refused nicotine replacement.
== END 2019-08-05 10:40 | disposition home or self-care (01) | DRG 885 ==
LOC: ADULT MH 10:02 → EEVIPCON 10:02
PROVIDERS: ADMIT Psychiatry & Neurology Psychiatry; ATTEND Psychiatry & Neurology Psychiatry
DX: F33.2 Major depressive disorder, recurrent severe without psychotic features (principal); F17.200 Nicotine dependence, unspecified, uncomplicated; F41.1 Generalized anxiety disorder; J44.9 Chronic obstructive pulmonary disease, unspecified; G89.29 Other chronic pain; M54.9 Dorsalgia, unspecified; T42.4X2A Poisoning by benzodiazepines, intentional self-harm, initial encounter; M25.571 Pain in right ankle and joints of right foot; Z23 Encounter for immunization; Y92.89 Other specified places as the place of occurrence of the external cause; Z80.0 Family history of malignant neoplasm of digestive organs; Z88.8 Allergy status to other drugs, medicaments and biological substances; Z71.6 Tobacco abuse counseling
CPT/HCPCS: 36415; 73610; 80053; 80061; 87081; 94760; 97116; 97161; 97530; Q2037; Z7610

== ENCOUNTER 2022-03-01 05:40 | Emergency (ER) | payer MEDICARE, OTHER ==
[~2022-03-01] VITALS: Ht 172.7 cm; Wt 95.5 kg
[~2022-03-01 05:40] MED LIST changes: -CLON0.5T12 PO; +CLON0.5T4 PO; +DOCU100C40 PO; +DULO30CA52 PO; +DULO60CA65 PO; -NICO-631 TD; -PANT40TA4 PO; -QUET100T33 PO; +QUET100T34 PO; +QUET25TA36 PO; -QUET50TA22 PO; -VORT5TAB PO
[2022-03-01 05:45] VITALS: BP 114/78
[2022-03-01] MEDS ORDERED: ketorolac trometh. 30mg/ml inj. IM ONE (06:10)
[2022-03-01] MEDS ORDERED: orphenadrine citrate 60mg/2ml inj. IM ONE (06:10)
== END 2022-03-01 08:05 | disposition home or self-care (01) ==
LOC: ER 05:40
DX: M54.50 Low back pain, unspecified (principal); J44.9 Chronic obstructive pulmonary disease, unspecified; G89.29 Other chronic pain; F17.210 Nicotine dependence, cigarettes, uncomplicated; Z87.01 Personal history of pneumonia (recurrent); Z98.890 Other specified postprocedural states; Z88.8 Allergy status to other drugs, medicaments and biological substances; Z79.899 Other long term (current) drug therapy
CPT/HCPCS: 72100; 96372; 99284; J1885; J2360

== ENCOUNTER 2022-12-25 09:41 | Emergency (ER) | payer MEDICARE, OTHER ==
[~2022-12-25] VITALS: Ht 175.3 cm; Wt 90.9 kg
[2022-12-25] MEDS ORDERED: clonazePAM 1mg tablet PO ONE (12:25)
[2022-12-25] MEDS ORDERED: CLON-527 PO (12:26)
[2022-12-25 13:17] VITALS: BP 140/92
== END 2022-12-25 14:00 | disposition home or self-care (01) ==
LOC: ER 09:41
DX: F41.9 Anxiety disorder, unspecified (principal); F13.239 Sedative, hypnotic or anxiolytic dependence with withdrawal, unspecified; R25.1 Tremor, unspecified; J44.9 Chronic obstructive pulmonary disease, unspecified; G89.29 Other chronic pain; M54.50 Low back pain, unspecified; Z88.8 Allergy status to other drugs, medicaments and biological substances; Z98.890 Other specified postprocedural states
CPT/HCPCS: 99283

== ENCOUNTER → 2024-07-30 | Emergency (ER) | payer MEDICARE, OTHER ==
[~2024-07-30] VITALS: Ht 172.7 cm; Wt 74.0 kg
[~2024-07-30] MED LIST changes: +CLON1TAB2 PO; +HYDR-3965 PO
[2024-07-30 13:40] VITALS: BP 197/100; PULSE 62; TEMP 97.5; O2SAT 98
[2024-07-30 15:50] VITALS: RESP 16
[2024-07-30] MEDS: ketorolac trometh 15mg/ml vial 15 MG/ML ML IM ONE (15:50)
== END | disposition home or self-care (01) ==
LOC: ER 13:34
DX: S52.502A Unspecified fracture of the lower end of left radius, initial encounter for closed fracture (principal); G89.29 Other chronic pain; M54.9 Dorsalgia, unspecified; J44.9 Chronic obstructive pulmonary disease, unspecified; Z88.1 Allergy status to other antibiotic agents; Z88.8 Allergy status to other drugs, medicaments and biological substances; Z79.2 Long term (current) use of antibiotics; Z79.899 Other long term (current) drug therapy; W18.39XA Other fall on same level, initial encounter; Y93.89 Activity, other specified; Y92.89 Other specified places as the place of occurrence of the external cause; Y99.8 Other external cause status
CPT/HCPCS: 29125; 73110; 96372; 99284; J1885; L3908